=== PATIENT | male | born 1980 | race Caucasian/White ===

== ENCOUNTER 2018-05-11 15:07 | Emergency (ER) | payer OTHER, SELFPAY ==
[2018-05-11 15:16] VITALS: BP 113/81; PULSE 98; RESP 18; TEMP 36.2; O2SAT 98
--- NOTE | 2018-05-11 15:43 | W.ED.GENAD ---
Discharge Plan Disposition Patient Disposition: HOME Condition: Fair Discharge Details Chief Complaint: DentalOral Clinical Impression: Dental abscess Primary Care Provider: Carmine Esparza ED Provider: Luzma Smart Home Meds and New Rx's Prescriptions: New penicillin V potassium 500 mg tablet 500 mg PO QID Qty: 28 RF: 0 Continued tramadol 50 mg tablet 50 mg PO Q6H PRN Qty: 120 RF: 2 diclofenac potassium 50 mg tablet 50 mg PO HS Qty: 30 RF: 2 Combivent Respimat 20-100 mcg/actuation mist 1 puff Inhalation QID Qty: 2 RF: 5 topiramate 50 mg tablet 50 mg PO BID Qty: 180 RF: 4 acetaminophen [Acetaminophen Extra Strength] 500 MG tablet 2 tab PO Q6H PRNQty: 120 RF: 4 Discharge Instructions Instructions: Dental Abscess (ED) Additional Instructions: Encourage hydration. Tylenol and/or Motrin as needed for discomfort. Take antibiotics as prescribed, even if symptoms improve take the entire course. Call dentist tomorrow to schedule follow up appointment. If you develop new/worsening symptoms please seek care urgently once again. Discharge Data Discharge Date/Time-TO BE ENTERED AT DEPARTURE: 05/11/18 16:45 Medical Decision Making Patient is a 38 year old male with history of migraines and mental retardation with c/c of right lower dental pain. States that pain and swelling has been present for the past 3 days. Has noted that swelling has increased. Was initially having draining from the tooth. Does not receive regular dental care, his father is helping to schedule follow up appointment. On exam, he has swelling and area of fluctuance near a broken and decaying #27 tooth. Discussed pathology with dental abscess and risks/benefits of drainage. He voices understanding and wishes to proceed. No trismus, no swelling under tongue, no palpable lymphadenopathy, remaining exam of oral cavity significant for poor dentition. Procedure note: Area was first anesthetized with Hurricaine gel. The sufficiently anesthetized the area. Using 11 blade the abscess was incised. Bloody and purulent discharge was extracted. Patient tolerated this well Patient I discussed care of open area. I did encourage dental hygiene. He reports that he has never been brushing his teeth as he had dental work completed about 10 years ago at which time he placed sutures making him not want to brush his teeth. Advised he will need prompt follow-up with dentist. List of local dentist was given. He reports that his father will help establish an appointment. We discussed new/worsening symptoms when to seek care urgently once again. Patient was begun on penicillin. Advised that even if symptoms improve he take the entire course. All of his questions and concerns were addressed and he is in agreement this plan. HPI General Mode of arrival: ambulatory. Date/Time Provider Initiated Documentation: 05/11/18 15:38. Limitations to Documentation: no limitations. Information obtained by: patient. History of Present Illness 38 year old M presents to the emergency department with the chief complaint of dental pain and facial swelling, described as moderate, with intensity rated at 8. Quality is described as aching, and is localized to the face and mouth. Patient reports no radiation. Patient started experiencing this day(s) (3) and it has been constant. No relieving factors improve symptom(s), Eating worsens symptoms . Patient notes nausea/vomiting; denies cough, fever/chills, headaches, loss of appetite, rash and shortness of breath. Patient did receive the following treatments prior to arrival, none Related Data Home Medications Medication Instructions Recorded Confirmed acetaminophen [Acetaminophen Extra 2 tab PO Q6H PRN #120 tab-cap 12/15/17 05/11/18 Strength] diclofenac potassium 50 mg tablet 50 mg PO HS #30 tab 03/05/18 05/11/18 tramadol 50 mg tablet 50 mg PO Q6H PRN #120 tab-cap 03/05/18 05/11/18 ipratropium 20 mcg-albuterol 100 1 puff INHALATION QID #2 ea 05/07/18 05/11/18 mcg/actuation mist for inhalation topiramate 50 mg tablet 50 mg PO BID #180 tab-cap 18 05/11/18 penicillin V potassium 500 mg PO QID #28 tab 05/11/18 Previous Rx's Medication Instructions Recorded diclofenac potassium 50 mg tablet 50 mg PO HS #30 tab 03/05/18 tramadol 50 mg tablet 50 mg PO Q6H PRN #120 tab-cap 03/05/18 ipratropium 20 mcg-albuterol 100 1 puff INHALATION QID #2 ea 05/07/18 mcg/actuation mist for inhalation topiramate 50 mg tablet 50 mg PO BID #180 tab-cap 05/07/18 penicillin V potassium 500 mg PO QID #28 tab 05/11/18 Allergies Allergy/AdvReac Type Severity Reaction Status Date / Time latex Allergy Intermediate skin rash Unverified 05/11/18 15:19 General Stated Complaint: DentalOral TERRENCE: 4 Review of Systems Constitutional Reports as per HPI, Denies chills, Denies fatigue, Denies fever(s), Denies headache(s) and Denies poor appetite Eyes Denies change in vision and Denies irritation ENT Reports as per HPI, Reports dental pain, Denies dysphagia, Denies headache(s), Denies lip swelling, Denies nasal congestion, Denies nasal discharge, Denies odynophagia, Denies sore throat and Denies throat swelling Cardiovascular Reports as per HPI and Denies chest pain Respiratory Reports as per HPI and Denies cough Gastrointestinal Reports as per HPI, Denies dysphagia, Denies nausea, Denies odynophagia and Denies vomiting Integumentary/Breasts Reports as per HPI, Denies erythema, Denies rash and Denies skin pain Neurologic Denies headache(s) Endocrine Denies fatigue Allergic/Immunologic Denies lip swelling and Denies throat swelling PFSH Surgical History Arthroplasty of knee Social History household members: other details: 3 current occupational status: employed 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 pets and animals: Yes pets and animals: dog(s) frequency: 3-4 times per week duration: < 15 minutes/day Smoking/Tobacco Use Status: Former Tobacco Use passive smoking exposure: No alcohol intake: current alcohol intake frequency: a few times a month substance use type: does not use special aiden needs: No Exam Const General: cooperative, healthy appearing, comfortable, no acute distress, well developed and well groomed Nutritional Appearance: average body habitus and well nourished Orientation: alert and awake [facility] Head: normal to inspection, normocephalic and atraumatic Ears: hearing grossly normal bilaterally, external ears normal and TM's normal bilaterally General nose exam: external nose normal and nares normal Face and sinus: abnormal facial exam (patient has swelling to inferior right side of jaw over area of dental pain) and sinuses nontender Face images: 1. swelling Mouth: abnormal oral mucosae (patient has area of erythema and fluctuance along the inferior right aspect), lip normal, tongue normal, moist mucous membranes, no drooling, no muffled voice, no trismus and No restricted motion Teeth and gingiva: abnormal dentition (patient has poor dentition. Area of fluctuance at the #27 tooth), caries and poor dentition Throat: posterior oropharynx normal, tonsils normal and uvula midline Eyes General: appearance normal, both eyes and all related structures Neck Neck: normal visual inspection, full ROM, no lymphadenopathy, supple and no anterior neck swelling Resp Effort & Inspection: normal respiratory effort, able to speak in complete sentences and no respiratory distress Auscultation: clear to auscultation bilaterally, no rales, no rhonchi and no wheezes Cardio Rate: regular rate Rhythm: regular rhythm Heart Sounds: S1 normal and S2 normal Skin General skin exam: no rashes or lesions noted Trauma: no lacerations or abrasions Neuro General: alert and awake Cognition: normal cognition Speech: speech normal Gait: normal gait Psych Appearance: grossly normal and well kempt Mental Status: mental status grossly normal Speech and Movement: speech and movement normal Course Vital Signs Temperature 36.2 C L 05/11/18 15:16 Pulse 98 H 05/11/18 15:16 Respiratory Rate 18 05/11/18 15:16 Blood Pressure 113/81 05/11/18 15:16 Pulse Oximetry 98 05/11/18 15:16 Temperature 36.2 C L 05/11/18 15:16 Pulse 98 H 05/11/18 15:16 Respiratory Rate 18 05/11/18 15:16 Respiratory Effort 05/11/18 15:20 Blood Pressure 113/81 05/11/18 15:16 Blood Pressure Position Sitting 05/11/18 15:16 Pulse Oximetry 98 05/11/18 15:16 Oxygen Delivery Method Room Air 05/11/18 15:16 Oxygen Flow Rate 0 05/11/18 15:16 Pain Level 8 05/11/18 15:20
--- NOTE | 2018-05-11 15:50 | ED.GENADUL_ITS ---
Discharge Plan Disposition Patient Disposition: HOME Condition: Fair Discharge Details Chief Complaint: DentalOral Clinical Impression: Dental abscess Primary Care Provider: Carmine Esparza ED Provider: Luzma Smart Home Meds and New Rx's Prescriptions: New penicillin V potassium 500 mg tablet 500 mg PO QID Qty: 28 RF: 0 Continued tramadol 50 mg tablet 50 mg PO Q6H PRN Qty: 120 RF: 2 diclofenac potassium 50 mg tablet 50 mg PO HS Qty: 30 RF: 2 Combivent Respimat 20-100 mcg/actuation mist 1 puff Inhalation QID Qty: 2 RF: 5 topiramate 50 mg tablet 50 mg PO BID Qty: 180 RF: 4 acetaminophen [Acetaminophen Extra Strength] 500 MG tablet 2 tab PO Q6H PRNQty: 120 RF: 4 Discharge Instructions Instructions: Dental Abscess (ED) Additional Instructions: Encourage hydration. Tylenol and/or Motrin as needed for discomfort. Take antibiotics as prescribed, even if symptoms improve take the entire course. Call dentist tomorrow to schedule follow up appointment. If you develop new/worsening symptoms please seek care urgently once again. Discharge Data Discharge Date/Time-TO BE ENTERED AT DEPARTURE: 05/11/18 16:45 Medical Decision Making Patient is a 38 year old male with history of migraines and mental retardation with c/c of right lower dental pain. States that pain and swelling has been present for the past 3 days. Has noted that swelling has increased. Was initially having draining from the tooth. Does not receive regular dental care, his father is helping to schedule follow up appointment. On exam, he has swelling and area of fluctuance near a broken and decaying #27 tooth. Discussed pathology with dental abscess and risks/benefits of drainage. He voices understanding and wishes to proceed. No trismus, no swelling under tongue, no palpable lymphadenopathy, remaining exam of oral cavity significant for poor dentition. Procedure note: Area was first anesthetized with Hurricaine gel. The sufficiently anesthetized the area. Using 11 blade the abscess was incised. Bloody and purulent discharge was extracted. Patient tolerated this well Patient I discussed care of open area. I did encourage dental hygiene. He reports that he has never been brushing his teeth as he had dental work completed about 10 years ago at which time he placed sutures making him not want to brush his teeth. Advised he will need prompt follow-up with dentist. List of local dentist was given. He reports that his father will help establish an appointment. We discussed new/worsening symptoms when to seek care urgently once again. Patient was begun on penicillin. Advised that even if symptoms improve he take the entire course. All of his questions and concerns were addre ssed and he is in agreement this plan. HPI General Mode of arrival: ambulatory . Date/Time Provider Initiated Documentation: 05/11/18 15:38 . Limitations to Documentation: no limitations . Information obtained by: patient . History of Present Illness 38 year old M presents to the emergency department with the chief complaint of dental pain and facial swelling, described as moderate, with intensity rated at 8. Quality is described as aching, and is localized to the face and mouth. Patient reports no radiation. Patient started experiencing this day(s) (3) and it has been constant. No relieving factors improve symptom(s), Eating worsens symptoms . Patient notes nausea/vomiting; denies cough, fever/chills, headaches, loss of appetite, rash and shortness of breath. Patient did receive the following treatments prior to arrival, none Related Data Home Medications Medication Instructions Recorded Confirmed acetaminophen [Acetaminophen Extra 2 tab PO Q6H PRN #120 tab-cap 12/15/17 05/11/18 Strength] diclofenac potassium 50 mg tablet 50 mg PO HS #30 tab 03/05/18 05/11/18 tramadol 50 mg tablet 50 mg PO Q6H PRN #120 tab-cap 03/05/18 05/11/18 ipratropium 20 mcg-albuterol 100 1 puff INHALATION QID #2 ea 05/07/18 05/11/18 mcg/actuation mist for inhalation topiramate 50 mg tablet 50 mg PO BID #180 tab-cap 18 05/11/18 penicillin V potassium 500 mg PO QID #28 tab 05/11/18 Previous Rx's Medication Instructions Recorded diclofenac potassium 50 mg tablet 50 mg PO HS #30 tab 03/05/18 tramadol 50 mg tablet 50 mg PO Q6H PRN #120 tab-cap 03/05/18 ipratropium 20 mcg-albuterol 100 1 puff INHALATION QID #2 ea 05/07/18 mcg/actuation mist for inhalation topiramate 50 mg tablet 50 mg PO BID #180 tab-cap 05/07/18 penicillin V potassium 500 mg PO QID #28 tab 05/11/18 Allergies Allergy/AdvReac Type Severity Reaction Status Date / Time latex Allergy Intermediate skin rash Unverified 05/11/18 15:19 General Stated Complaint: DentalOral TERRENCE: 4 Review of Systems Constitutional Reports as per HPI, Denies chills, Denies fatigue, Denies fever(s), Denies headache(s) and Denies poor appetite Eyes Denies change in vision and Denies irritation ENT Reports as per HPI, Reports dental pain, Denies dysphagia, Denies headache(s), Denies lip swelling, Denies nasal congestion, Denies nasal discharge, Denies odynophagia, Denies sore throat and Denies throat swelling Cardiovascular Reports as per HPI and Denies chest pain Respiratory Reports as per HPI and Denies cough Gastrointestinal Reports as per HPI, Denies dysphagia, Denies nausea, Denies odynophagia and Denies vomiting Integumentary/Breasts Reports as per HPI, Denies erythema, Denies rash and Denies skin pain Neurologic Denies headache(s) Endocrine Denies fatigue Allergic/Immunologic Denies lip swelling and Denies throat swelling PFSH Surgical History Arthroplasty of knee Social History household members: other details: 3 current occupational status: employed 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 pets and animals: Yes pets and animals: dog(s) frequency: 3-4 times per week duration: < 15 minutes/day Smoking/Tobacco Use Status: Former Tobacco Use passive smoking exposure: No alcohol intake: current alcohol intake frequency: a few times a month substance use type: does not use special aiden needs: No Exam Const General: cooperative, healthy appearing, comfortable, no acute distress, well developed and well groomed Nutritional Appearance: average body habitus and well nourished Orientation: alert and awake [facility] Head: normal to inspection, normocephalic and atraumatic Ears: hearing grossly normal bilaterally, external ears normal and TM's normal bilaterally General nose exam: external nose normal and nares normal Face and sinus: abnormal facial exam (patient has swelling to inferior right zachery e of jaw over area of dental pain) and sinuses nontender Face images: 1. swelling Mouth: abnormal oral mucosae (patient has area of erythema and fluctuance along the inferior right aspect), lip normal, tongue normal, moist mucous membranes, no drooling, no muffled voice, no trismus and No restricted motion Teeth and gingiva: abnormal dentition (patient has poor dentition. Area of f luctuance at the #27 tooth), caries and poor dentition Throat: posterior oropharynx normal, tonsils normal and uvula midline Eyes General: appearance normal, both eyes and all related structures Neck Neck: normal visual inspection, full ROM, no lymphadenopathy, supple and no an terior neck swelling Resp Effort & Inspection: normal respiratory effort, able to speak in complete sentences and no respiratory distress Auscultation: clear to auscultation bilaterally, no rales, no rhonchi and no wheezes Cardio Rate: regular rate Rhythm: regular rhythm Heart Sounds: S1 normal and S2 normal Skin General skin exam: no rashes or lesions noted Trauma: no lacerations or abrasions Neuro General: alert and awake Cognition: normal cognition Speech: speech normal Gait: normal gait Psych Appearance: grossly normal and well kempt Mental Status: mental status grossly normal Speech and Movement: speech and movement normal Course Vital Signs Temperature 36.2 C L 05/11/18 15:16 Pulse 98 H 05/11/18 15:16 Respiratory Rate 18 05/11/18 15:16 Blood Pressure 113/81 05/11/18 15:16 Pulse Oximetry 98 05/11/18 15:16 Temperature 36.2 C L 05/11/18 15:16 Pulse 98 H 05/11/18 15:16 Respiratory Rate 18 05/11/18 15:16 Respiratory Effort 05/11/18 15:20 Blood Pressure 113/81 05/11/18 15:16 Blood Pressure Position Sitting 05/11/18 15:16 Pulse Oximetry 98 05/11/18 15:16 Oxygen Delivery Method Room Air 05/11/18 15:16 Oxygen Flow Rate 0 05/11/18 15:16 Pain Level 8 05/11/18 15:20
[2018-05-11 16:36] VITALS: BP 113/81; PULSE 98; RESP 18; TEMP 36.2; O2SAT 98
== END 2018-05-11 16:45 | disposition home or self-care (01) ==
PROVIDERS: Emergency Provider Physician Assistant; PCP Family Medicine
DX: K04.7 Periapical abscess without sinus (principal)
CPT/HCPCS: 99283

== ENCOUNTER 2018-05-14 10:21 | Outpatient (CLI) | payer OTHER, SELFPAY ==
[2018-05-14 11:43] LABS: BUN 14 mg/dL (7-18); CREATININE 1.02 mg/dL (0.70-1.30); Chloride 103 mmol/L (98-107); Cholesterol 177 mg/dL (50-200); Glucose 105 mg/dL (70-100); HDL Cholesterol 47 mg/dL (40-60); LDL CHOLESTEROL 114 mg/dL (<100); Sodium 140 mmol/L (136-145); Triglyceride 66 mg/dL (30-150)
== END 2018-05-14 10:41 ==
PROVIDERS: PCP Family Medicine; Visit Provider Family Medicine
DX: Z00.00 Encounter for general adult medical examination without abnormal findings (principal); I10 Essential (primary) hypertension
CPT/HCPCS: 36415; 80048; 80061; 83721

== ENCOUNTER 2018-10-15 13:44 | Outpatient (CLI) | payer OTHER, SELFPAY ==
[2018-10-15 14:06] LABS: HCT 38.4 % (40.0-50.0); HGB 13.6 g/dL (13.5-17.5); Mean Corp. HGB Concentration 35.4 g/dL (32.0-36.0); Mean Corpuscular Volume 93.2 fL (80-95); Mean Platelet Volume 10.6 fL (8.0-11.0); Platelet Count 202 x1000/uL (130-400); RBC 4.12 m/cumm (4.50-6.00); RBC Distribution Width 12.4 % (11.8-14.1); White Blood Cell Count 5.44 k/cumm (4.4-10.8)
[2018-10-15 14:16] LABS: PTT Activated 20.5 sec (21.0-31.4); Prothrombin Time 9.9 sec (9.3-11.0)
== END 2018-10-15 14:04 ==
PROVIDERS: PCP Family Medicine; Visit Provider Family Medicine
DX: R04.0 Epistaxis (principal)
CPT/HCPCS: 36415; 85027; 85610; 85730

== ENCOUNTER 2019-01-31 13:29 | Emergency (ER) | payer OTHER, SELFPAY ==
[2019-01-31 13:32] VITALS: BP 126/88; PULSE 93; RESP 16; TEMP 36.8; O2SAT 98
--- NOTE | 2019-01-31 15:24 | ED.GENADUL_ITS ---
Discharge Plan Disposition Patient Disposition: HOME Condition: Stable Discharge Details Chief Complaint: Cellulitis Clinical Impression: Infection of toe Primary Care Provider: Carmine Esparza ED Provider: Eliceo Carlton Home Meds and New Rx's Prescriptions: New amoxicillin-pot clavulanate [Augmentin] 875-125 mg tablet 1 tab PO BID Qty: 14 RF: 0 Continued diclofenac potassium 50 mg tablet 50 mg PO HS Qty: 30 RF: 2 Combivent Respimat 20-100 mcg/actuation mist 1 puff Inhalation QID Qty: 2 RF: 5 acetaminophen [Acetaminophen Extra Strength] 500 MG tablet 2 tab PO Q6H PRNQty: 120 RF: 4 tramadol 50 mg tablet 50 mg PO Q6H PRN Qty: 120 RF: 2 No Action topiramate 50 mg tablet 50 mg PO BID Qty: 180 RF: 4 Discharge Instructions Instructions: Cellulitis (ED) Additional Instructions: Please take your medication as prescribed including her antibiotic. Return immediately for any new or significant worsening of symptoms. Otherwise over th e next 3 days please soak your foot in warm soapy water 3 times a day and keep your foot as dry as possible while at work and otherwise. If not improving please follow-up with your primary care provider for reassessment Referrals: Carmine Esparza MD [Primary Care Provider] - (As needed for reassessment or if not improving) Discharge Data Discharge Date/Time-TO BE ENTERED AT DEPARTURE: 01/31/19 15:31 Medical Decision Making Patient presenting the emergency department chief complaint of infection of the right fifth toe. Patient states that he noticed this last night. Patient does state a couple days ago he cut his toe. Patient denies any pain or discomfort at this point he does state though that he only gets his foot wet quite often while at work wears work boots. Physical exam shows swollen left fifth toe on the distal aspect with some dried blood noted underneath the nail. It is difficult to fully assess the skin though because of what appears to be either shoe dye or Betadine that has discolored the skin. Attempted to remove this with chlorhexidine scrub was able to remove some of it but not all of it. It does look like the distal aspect of the toe is slightly darkened in the area of swelling but again difficult to observe erythema. Given the patient does state injury to this area and that his feet get wet quite often at work and concern for infection I do feel it is prudent to place patient on antibiotic. Patient was placed upon Augmentin twice daily for 1 week and otherwise informed to do foot soaks to further help with his symptoms. Return precautions discussed. After discussion of diagnosis and plan of care patient has no further needs, questions, or concerns and states clear understanding to return to the emergency department for any worsening symptoms. HPI General Mode of arrival: ambulatory . Date/Time Provider Initiated Documentation: 01/31/19 13:38 . Limitations to Documentation: no limitations . Information obtained by: patient and RN notes reviewed . History of Present Illness 38 year old M presents to the emergency department with the chief complaint of Right foot infection, described as moderate, with intensity rated at 1. Quality is described as aching, and is localized to the right and lower extremity. Patient started experiencing this day(s) (2) and it has been constant. Patient notes no other symptoms.. Patient did receive the following treatments prior to arrival, other (Alcohol and soap scrubs) Related Data Home Medications Medication Instructions Recorded Confirmed acetaminophen [Acetaminophen Extra 2 tab PO Q6H PRN #120 tab-cap 12/15/17 01/31/19 Strength] diclofenac potassium 50 mg tablet 50 mg PO HS #30 tab 03/05/18 01/31/19 ipratropium 20 mcg-albuterol 100 1 puff INHALATION QID #2 ea 05/07/18 01/31/19 mcg/actuation mist for inhalation tramadol 50 mg tablet 50 mg PO Q6H PRN #120 tab-cap 11/02/18 01/31/19 amoxicillin-pot clavulanate 1 tab PO BID #14 tab 01/31/19 [Augmentin] topiramate 50 mg tablet 50 mg PO BID #180 tab-cap 01/31/19 Previous Rx's Medication Instructions Recorded diclofenac potassium 50 mg tablet 50 mg PO HS #30 tab 03/05/18 ipratropium 20 mcg-albuterol 100 1 puff INHALATION QID #2 ea 05/07/18 mcg/actuation mist for inhalation tramadol 50 mg tablet 50 mg PO Q6H PRN #120 tab-cap 11/02/18 amoxicillin-pot clavulanate 1 tab PO BID #14 tab 01/31/19 [Augmentin] topiramate 50 mg tablet 50 mg PO BID #180 tab-cap 01/31/19 Allergies Allergy/AdvReac Type Severity Reaction Status Date / Time latex Allergy Intermediate skin rash Unverified 10/15/18 12:55 General Stated Complaint: Cellulitis TERRENCE: 4 Review of Systems Constitutional Denies body ache(s), Denies chills and Denies fever(s) Integumentary/Breasts Reports as per HPI, Reports erythema and Reports skin swelling Neurologic Denies sensory deficit PFSH Surgical History Arthroplasty of knee Dr. 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 Pets and animals: Yes Pets and animals: dog(s) Duration: < 15 minutes/day Frequency: 3-4 times per week Special aiden needs: No Do you feel safe in your relationship?: Yes Exam Const General: cooperative, no acute distress and not ill appearing Orientation: alert, awake and oriented x3 HENMT Mouth: moist mucous membranes Resp Effort & Inspection: normal respiratory effort, able to speak in complete sentences and no respiratory distress Cardio Rate: regular rate Rhythm: regular rhythm Extrem General: normal exam except as noted Left lower extremity: foot Details: normal capillary refill, tenderness Location: of another digit Location: the 5th digit and along the entire digit, toes with normal ROM, vascular exam Details: dorsalis pedis pulse present and motor-sensory exam Details: two point discrimination normal and light-touch normal Course Vital Signs Temperature 36.8 C 01/31/19 13:32 Pulse 93 H 01/31/19 13:32 Respiratory Rate 16 01/31/19 13:32 Blood Pressure 126/88 01/31/19 13:32 Pulse Oximetry 98 01/31/19 13:32 Temperature 36.8 C 01/31/19 13:32 Temperature Source Skin 01/31/19 13:32 Pulse 93 H 01/31/19 13:32 Respiratory Rate 16 01/31/19 13:32 Blood Pressure 126/88 01/31/19 13:32 Blood Pressure Position Sitting 01/31/19 13:32 Pulse Oximetry 98 01/31/19 13:32 Oxygen Delivery Method Room Air 01/31/19 13:32 Oxygen Flow Rate 0 01/31/19 13:32 Pain Level 0 01/31/19 13:32
== END 2019-01-31 15:31 | disposition home or self-care (01) ==
PROVIDERS: Emergency Provider Nurse Practitioner Family; PCP Family Medicine
DX: L03.031 Cellulitis of right toe (principal)
CPT/HCPCS: 99283

== ENCOUNTER 2019-02-10 21:12 | Emergency (ER) | payer OTHER, SELFPAY ==
[2019-02-10 21:16] VITALS: BP 127/86; PULSE 90; RESP 18; TEMP 36.7; O2SAT 96
--- NOTE | 2019-02-10 21:21 | W.ED.GENAD ---
Discharge Plan Disposition Patient Disposition: HOME Condition: Good Discharge Details Chief Complaint: DentalOral Clinical Impression: Dental infection Primary Care Provider: Carmine Esparza ED Provider: Rogerio Stewart Home Meds and New Rx's Prescriptions: New penicillin V potassium 500 mg tablet 500 mg PO TID Qty: 20 RF: 0 Continued diclofenac potassium 50 mg tablet 50 mg PO HS Qty: 30 RF: 2 Combivent Respimat 20-100 mcg/actuation mist 1 puff Inhalation QID Qty: 2 RF: 5 acetaminophen [Acetaminophen Extra Strength] 500 MG tablet 2 tab PO Q6H PRNQty: 120 RF: 4 tramadol 50 mg tablet 50 mg PO Q6H PRN Qty: 120 RF: 2 topiramate 50 mg tablet 50 mg PO BID Qty: 180 RF: 4 Discharge Instructions Instructions: Penicillin V (By mouth), Dental Abscess (ED) Additional Instructions: You may take Tylenol for your dental pain. Start antibiotic for infection. He will need follow-up with dentistry. [facility] now as a dentist who will take people to the OR. Return to ED for inability to swallow, difficulty breathing, increasing face pain or swelling. Referrals: [facility] [Provider Group] Medical Decision Making Patient with severe dental decay involving all teeth. Percussion tenderness over tooth #30. No obvious abscess that is drainable here. Patient will be started on penicillin. May use Tylenol or Motrin for pain. Referred to dentistry for further evaluation and management. Return to ED for difficulty breathing, inability to swallow, increased facial pain or swelling, high fever. HPI General Mode of arrival: ambulatory. Date/Time Provider Initiated Documentation: 02/10/19 21:20. Limitations to Documentation: no limitations. Information obtained by: patient and RN notes reviewed. HPI Narrative: Patient presents to ED with right lower dental pain for about 1 week. He has very bad dentition. He has not seen a dentist in a while. Pain has been getting worse over the course of a week. He has had no fever that he is aware of. He has no difficulty breathing or swallowing. Related Data Home Medications Medication Instructions Recorded Confirmed acetaminophen [Acetaminophen Extra 2 tab PO Q6H PRN #120 tab-cap 12/15/17 02/10/19 Strength] diclofenac potassium 50 mg tablet 50 mg PO HS #30 tab 03/05/18 02/10/19 ipratropium 20 mcg-albuterol 100 1 puff INHALATION QID #2 ea 05/07/18 02/10/19 mcg/actuation mist for inhalation tramadol 50 mg tablet 50 mg PO Q6H PRN #120 tab-cap 11/02/18 02/10/19 topiramate 50 mg tablet 50 mg PO BID #180 tab-cap 01/31/19 02/10/19 penicillin V potassium 500 mg PO TID #20 tab 02/10/19 Previous Rx's Medication Instructions Recorded diclofenac potassium 50 mg tablet 50 mg PO HS #30 tab 03/05/18 ipratropium 20 mcg-albuterol 100 1 puff INHALATION QID #2 ea 05/07/18 mcg/actuation mist for inhalation tramadol 50 mg tablet 50 mg PO Q6H PRN #120 tab-cap 11/02/18 topiramate 50 mg tablet 50 mg PO BID #180 tab-cap 01/31/19 penicillin V potassium 500 mg PO TID #20 tab 02/10/19 Allergies Allergy/AdvReac Type Severity Reaction Status Date / Time latex Allergy Intermediate skin rash Unverified 02/10/19 21:19 General Stated Complaint: DentalOral TERRENCE: 5 Review of Systems Constitutional Constitutional: Denies fever(s) ENT Ears, Nose, Mouth, and Throat: Reports dental pain and Denies facial pain COUNT INCLUDES THE [facility] Medical History Migraine (Chronic) Surgical History Arthroplasty of knee Dr. 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 Pets and animals: Yes Pets and animals: dog(s) Duration: < 15 minutes/day Frequency: 3-4 times per week Special aiden needs: No Do you feel safe at home: Yes Do you feel safe in your relationship?: Yes Exam Const General: cooperative and comfortable Orientation: alert and oriented x3 HENMT Head: normocephalic and atraumatic Face and sinus: normal facial exam Teeth and gingiva: gingiva normal, poor dentition and other (tooth 30 with percussion tenderness) Course Vital Signs Vital signs: Vital Signs Temperature 98.1 F 02/10/19 21:16 Pulse 90 02/10/19 21:16 Respiratory Rate 18 02/10/19 21:16 Blood Pressure 127/86 02/10/19 21:16 Pulse Oximetry 96 02/10/19 21:16 Temperature 98.1 F 02/10/19 21:16 Temperature Source Skin 02/10/19 21:16 Pulse 90 02/10/19 21:16 Respiratory Rate 18 02/10/19 21:16 Respiratory Effort 02/10/19 21:19 Blood Pressure 127/86 02/10/19 21:16 Blood Pressure Position Sitting 02/10/19 21:16 Pulse Oximetry 96 02/10/19 21:16 Oxygen Delivery Method Room Air 02/10/19 21:16 Oxygen Flow Rate 0 02/10/19 21:16 Pain Level 8 02/10/19 21:19
[2019-02-10] MEDS: Penicillin V POTASSIUM 500 MG TAB PO (21:36)
[2019-02-10] MEDS: Acetaminophen 500 MG TAB 1000 MG PO (21:36)
== END 2019-02-10 21:55 | disposition home or self-care (01) ==
PROVIDERS: Emergency Provider Emergency Medicine; PCP Family Medicine
DX: K04.7 Periapical abscess without sinus (principal)
CPT/HCPCS: 99282

== ENCOUNTER 2019-08-26 10:53 | Emergency (ER) | payer OTHER, SELFPAY ==
--- NOTE | 2019-08-26 11:02 | ED.GENADUL_ITS ---
Discharge Plan Disposition Patient Disposition: HOME Condition: Stable Discharge Details Chief Complaint: GenMedical Clinical Impression: Well adult exam Primary Care Provider: Carmine Esparza ED Provider: Vandana Rachel Home Meds and New Rx's Prescriptions: Continued acetaminophen [Acetaminophen Extra Strength] 500 MG tablet 2 tab PO Q6H PRNQty: 120 RF: 4 topiramate 50 mg tablet 50 mg PO BID Qty: 180 RF: 4 Combivent Respimat 20-100 mcg/actuation mist 1 puff Inhalation QID Qty: 2 RF: 5 tramadol 50 mg tablet 50 mg PO Q6H PRN Qty: 120 RF: 2 Discharge Instructions Instructions: How to Take a Temperature (ED), Return to Work Instructions (ED) Additional Instructions: Drink plenty of fluids and get plenty of rest. If you develop any symptoms of fever, cough, shortness of breath, you can follow-up with your primary care doctor or return to the emergency department for evaluation. Stand Alone Forms: Work Release Discharge Data Discharge Physician: Vandana Rachel Medical Decision Making 39-year-old male here for evaluation after noted to have a temp of 100 at work this morning. Mom recommended he come here for evaluation as he was sent home from work cannot return today. Vitals within normal limits. Afebrile here with normal oxygen saturation. Patient appears nontoxic. He has no acute complaints. Normal ENT exam. Lungs clear. Patient requested a work note to return Thursday. He was advised to follow-up with his primary care doctor return here if he develops any symptoms of fever, cough, shortness of breath. Medical Records Medical records reviewed: Yes I reviewed the patient's medical records. HPI General Mode of arrival: ambulatory . Date/Time Provider Initiated Documentation: 08/26/19 10:54 . Limitations to Documentation: no limitations . Information obtained by: patient . HPI Narrative: Patient is a 39-year-old male who presents for evaluation after found to have a temperature of 100 at work at [employer] this morning. Patient states he was sent home from work due to this temperature. He states his mom advised him to come here for further evaluation as he states he did not have a temperature at home this morning and felt fine. He states his temperature this morning at home was 93.5. He states he was advised by his work to not return to work today. Patient denies any symptoms of fever, chills, body aches, cough, chest pain, chills, shortness of breath or new sore throat. He states he has a history of chronic sore throat for several years but states this is no worse than usual. Related Data Home Medications Medication Instructions Recorded Confirmed acetaminophen [Acetaminophen Extra 2 tab PO Q6H PRN #120 tab-cap 12/15/17 08/26/19 Strength] topiramate 50 mg tablet 50 mg PO BID #180 tab-cap 01/31/19 08/26/19 ipratropium 20 mcg-albuterol 100 1 puff INHALATION QID #2 ea 06/16/19 08/26/19 mcg/actuation mist for inhalation tramadol 50 mg tablet 50 mg PO Q6H PRN #120 tab-cap 08/05/19 08/26/19 Previous Rx's Medication Instructions Recorded topiramate 50 mg tablet 50 mg PO BID #180 tab-cap 01/31/19 ipratropium 20 mcg-albuterol 100 1 puff INHALATION QID #2 ea 06/16/19 mcg/actuation mist for inhalation tramadol 50 mg tablet 50 mg PO Q6H PRN #120 tab-cap 08/05/19 Allergies Allergy/AdvReac Type Severity Reaction Status Date / Time latex Allergy Intermediate skin rash Unverified 08/26/19 11:08 General TERRENCE: 5 Review of Systems All systems reviewed & are unremarkable except as noted in HPI and below Constitutional Constitutional: Reports as per HPI, Denies chills and Denies fever(s) Eyes Eyes: Denies blurry vision ENT Ears, Nose, Mouth, and Throat: Denies dizziness, Denies sore throat and Denies throat swelling Cardiovascular Cardiovascular: Denies chest pain and Denies dyspnea Respiratory Respiratory: Denies cough and Denies dyspnea Gastrointestinal Gastrointestinal: Denies abdominal pain, Denies diarrhea and Denies vomiting Genitourinary Genitourinary: Denies hematuria and Denies dysuria Musculoskeletal Musculoskeletal: Denies back pain and Denies numbness Integumentary/Breasts Skin/Breast: Denies lesions and Denies rash Neurologic Neurologic: Denies dizziness, Denies localized weakness and Denies numbness Allergic/Immunologic Allergic/Immunologic: Denies throat swelling [facility] Social History Smoking/Tobacco Use Status: Former Tobacco Use Alcohol Intake: current Alcohol Intake frequency: a few times a month Drug use: Never Substance use type: does not use Household members: other Details: 3 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 Pets and animals: Yes Pets and animals: dog(s) Duration: < 15 minutes/day Frequency: 3-4 times per week Special aiden needs: No Do you feel safe at home: Yes Do you feel safe in your relationship?: Yes Exam Const General: cooperative and healthy appearing Orientation: alert and awake HENMT Head: normal to inspection Ears: hearing grossly normal bilaterally, external ears normal and TM's normal b ilaterally General nose exam: external nose normal Face and sinus: normal facial exam Mouth: oral mucosae normal Teeth and gingiva: dentition normal Throat: posterior oropharynx normal Eyes General: appearance normal, both eyes and all related structures Eyelids: eyelids normal EOM: EOM intact bilaterally Neck Neck: normal visual inspection Lymphatic: no lymphadenopathy noted Resp Effort & Inspection: normal respiratory effort and able to speak in complete sentences Auscultation: clear to auscultation bilaterally Cardio Rate: regular rate Rhythm: regular rhythm Skin General skin exam: no rashes or lesions noted Neuro General: patient alert and patient awake Cognition: abnormal cognition (appears to mild developmental delay) Speech: speech normal Gait: normal gait Motor: muscle tone normal throughout Sensory Exam: no sensory deficits noted Extrem General: normal to inspection, full ROM and capillary refill normal Psych Appearance: grossly normal Mental Status: mental status grossly normal Speech and Movement: speech and movement normal Affect: normal affect Thought Process: normal
[2019-08-26 11:04] VITALS: BP 123/79; PULSE 99; RESP 18; TEMP 36.5; O2SAT 97
[2019-08-26 11:06] VITALS: RESP 16
[2019-08-26 11:33] VITALS: BP 123/79; PULSE 99; RESP 16; TEMP 36.5; O2SAT 97
== END 2019-08-26 11:32 | disposition home or self-care (01) ==
PROVIDERS: Emergency Provider Physician Assistant; PCP Family Medicine
DX: Z04.89 Encounter for examination and observation for other specified reasons (principal)
CPT/HCPCS: 99281

== ENCOUNTER 2020-09-03 09:02 | Outpatient (CLI) | payer OTHER, SELFPAY ==
[2020-09-04 14:15] LABS: COVID-19 RT-PCR UVMMC Result Negative (Negative)
== END 2020-09-03 09:03 | disposition home or self-care (01) ==
PROVIDERS: PCP Family Medicine; Visit Provider Family Medicine
DX: Z20.822 Contact with and (suspected) exposure to COVID-19 (principal)
CPT/HCPCS: U0003

== ENCOUNTER 2020-10-08 03:25 | Outpatient (CLI) | payer OTHER, SELFPAY ==
[2020-10-08 07:35] LABS: HCT 43.7 % (40.0-50.0); MCH 32.4 pg (27.0-33.0); MCHC 34.3 % (32.0-36.0); MCV 94.4 fL (80-95); MPV 10.3 fL (8.0-11.0); Platelet Count 201 10^3/uL (130-400); RBC 4.63 10^6/uL (4.36-5.78); RDW 11.9 % (11.8-14.1); RDW-SD 41.3 fL; WBC 7.71 10^3/uL (4.4-10.8)
[2020-10-08 08:19] LABS: ALT 23 U/L (16-63); AST 24 U/L (15-37); Albumin 4.1 g/dL (3.4-5.0); Alkaline Phosphatase 88 U/L (46-116); Anion Gap 7.6 mmol/L (3-11); BUN 12 mg/dL (7-18); Bilirubin, Total 0.5 mg/dL (0.2-1.0); CO2 30.4 mmol/L (21.0-32.0); CREATININE 0.9 mg/dL (0.70-1.30); Calcium 9.1 mg/dL (8.5-10.1); Calculated LDL 141 mg/dL (<100); Chloride 105 mmol/L (98-107); Cholesterol 212 mg/dL (<200); Glucose 115 mg/dL (74-106); HDL Cholesterol 57 mg/dL (40-60); Potassium 4.8 mmol/L (3.5-5.1); Sodium 143 mmol/L (136-145); Total Protein 7.8 g/dL (6.4-8.2); Triglyceride 74 mg/dL (<150)
[2020-10-08 10:29] LABS: Hemoglobin A1C 5.3 % (<5.7)
== END 2020-10-08 03:26 | disposition home or self-care (01) ==
LOC: LBO 03:25
PROVIDERS: PCP Family Medicine; Visit Provider Nurse Practitioner Family
DX: Z00.00 Encounter for general adult medical examination without abnormal findings (principal); R73.09 Other abnormal glucose; Z13.220 Encounter for screening for lipoid disorders
CPT/HCPCS: 36415; 80053; 80061; 85027; 83036

== ENCOUNTER 2020-11-20 11:35 | Outpatient (REF) | payer OTHER, SELFPAY ==
[2020-11-22 13:50] LABS: COVID-19 RT-PCR UVMMC Result Negative (Negative)
== END 2020-11-20 11:36 | disposition home or self-care (01) ==
LOC: LBN 11:35
PROVIDERS: PCP Nurse Practitioner Family; Visit Provider Physician Assistant
DX: J02.9 Acute pharyngitis, unspecified (principal); Z20.822 Contact with and (suspected) exposure to COVID-19
CPT/HCPCS: U0003; 87070

== ENCOUNTER 2021-06-17 02:10 | Outpatient (CLI) | payer BC, SELFPAY ==
--- NOTE | 2021-06-17 08:15 | DI.US_ITS ---
APPROVED REPORT EXAM: Comprehensive 2D, Doppler, and color-flow Echocardiogram Patient Location: Out-Patient Locator Specialist: Massiel Enciso RDCS (AE) Indications: Chest Pain, SOB Other Information Study Quality: Good Conclusion Normal left ventricular wall thickness and chamber size. Estimated ejection fraction is 60%. There are no segmental wall motion abnormalities Normal right ventricular size and systolic function Both atria are normal in size There is no structural or hemodynamically significant valvular disease Wall motion Left Ventricle The left ventricle is normal size. The left ventricular systolic function is normal. The left ventric ular ejection fraction is within the normal range. There is normal left ventricular wall thickness. T here is normal LV segmental wall motion. There is no ventricular septal defect visualized. LVEF is 60 %. Right Ventricle The right ventricle is normal size. The right ventricular systolic function is normal. The RVSP is 32 .3 mmHg. Atria The left atrium size is normal. The right atrium size is normal. The interatrial septum is intact wit h no evidence for an atrial septal defect. Aortic Valve The aortic valve is normal in structure. Aortic valve is trileaflet. There is no aortic valvular sten osis. No aortic regurgitation is present. Mitral Valve The mitral valve is normal in structure. No evidence of mitral valve stenosis. Trace mitral regurgita tion. Tricuspid Valve The tricuspid valve is normal in structure. There is no tricuspid valve stenosis. Trace tricuspid reg urgitation. Pulmonic Valve The pulmonary valve is normal in structure. There is no pulmonic valvular stenosis. There is no pulmo hernán valvular regurgitation. Great Vessels The aortic root is normal in size. The ascending aorta is normal in size. Aortic arch is normal in ca liber. IVC is normal in size and collapses >50% with inspiration. Pericardium There is no pericardial effusion. 2D Dimensions IVSD d PLAX 0.80 cm M: 0.6-1.2 LV Vol A2C d MOD 106.3 mL LVPW d PLAX 0.82 cm M: 0.6 - 1.2 LV Vol A4C d MOD 102.5 mL LVID d PLAX 4.71 cm M: 4.2 - 5.8 LA vol/ BSA A2C s A-L 24.7 mL/m2 LVDs 3.05 cm M: 2.5 - 4.0 LA vol/ BSA A4C s A-L 29.2 mL/m2 Ao Root d 3.34 cm M: 3.1 - 3.7 LA Vol/ BSA Biplane s A-L 27.8 mL/m2 RA Area A4C 11.96 cm2 LA Area A4C s MOD 18.42 cm2 RA Vol/ BSA A4C s A-L 15.7 mL/m2 LA Area A2C s MOD 16.34 cm2 Ao Asc Diam d 3.31 cm M: 2.6 - 3.4 LV EF A4C MOD 60.7 % LV EF Teichholz 63.7 % LV EF A2C MOD 61.3 % LVEF (John's) 60.61 % M: 52 - 72 LV EF Biplane MOD 60.6 % LV Volume 80.41 mL M: 62 - 150 SV 63.37 mL LV Volume Index 43.46 mL/m2 M: 34 - 74 SV Index 34.10 mL/m2 LV Vol Biplane MOD 104.5 mL FS 34.55 % M-Mode TAPSE 2.69 cm (M/F) >1.7 LV Diastology MV E' medial 0.121 (>0.07 m/s) E/A Ratio 1.3 LV E/e MED 6.20 (<14) MV E Vmax 0.75 (0.4-1.3 m/s) MV E' lateral 0.171 (>0.1 m/s) MV A Vmax 0.60 (0.4-1.3 m/s) LV E/e LAT 4.35 (<14) MV E/A Ratio 1.25 MV E/E' medial 6.20 MV E/E' lateral 4.39 Aortic Valve LVOT Area 3.09 cm2 AoV Area Vmax 3.05 cm2 LVOT Vmax 1.26 m/s AoV Area/ BSA (Vmax) 1.64 cm2/m2 LVOT Mean Asl. 0.84 m/s JUAN Mean Sal. 2.93 cm2 LVOT Peak Grad 6.3 mmHg JUAN Mean Sal. Index 1.58 cm2/m2 LVOT Mean Grad 3.3 mmHg LVOT VTI 0.238 m LVOT Diam s 1.95 cm AoV Vmax 1.28 m/s Velocity Ratio 0.98 AoV Mean Sal. 0.89 m/s AoV Peak Grad 6.5 mmHg LVOT SV 73.57 mL AoV Mean Grad 3.6 mmHg AoV VTI 0.227 m AoV Area VTI 3.24 cm2 AoV Area/ BSA (VTI) 1.74 cm/m2 Mitral Valve MV DT 293 (160-240 msec) MV PHT 85 msec MV Area PHT 2.59 cm2 MV VTI 0.264 m MV Area VTI 2.79 (4.0-6.0 cm2) Pulmonary Valve PV Vmax 1.15 (0.5-1.5 m/s) RVOT Peak Gr. 3.72 mmHg PV Peak Grad 5.3 mmHg RVOT Mean Gr. 1.80 mmHg PV Mean Grad 2.8 mmHg RVOT VTI 0.196 m PV VTI 0.219 m RVOT Vmax 0.96 m/s Tricuspid Valve TR Peak Grad 29.2 mmHg TR Vmax 2.71 m/s RA Pressure 3.00 mmHg RVSP (TR) 32.3 mmHg
== END 2021-06-17 02:30 ==
PROVIDERS: PCP Nurse Practitioner Family; Visit Provider Surgery
DX: R07.9 Chest pain, unspecified (principal); R06.02 Shortness of breath; R07.0 Pain in throat; R13.10 Dysphagia, unspecified; G89.29 Other chronic pain; R73.09 Other abnormal glucose; F79 Unspecified intellectual disabilities
CPT/HCPCS: 93306

== ENCOUNTER 2021-06-19 01:15 | Outpatient (CLI) | payer BC, SELFPAY ==
[2021-06-19 15:34] LABS: Source Nasal/Nares
[2021-06-19 18:27] LABS: COVID-19 PCR Negative (Negative)
== END 2021-06-19 01:16 | disposition home or self-care (01) ==
LOC: LBO 01:15
PROVIDERS: PCP Nurse Practitioner Family; Visit Provider Surgery
DX: Z20.822 Contact with and (suspected) exposure to COVID-19 (principal); Z01.818 Encounter for other preprocedural examination
CPT/HCPCS: 87635

== ENCOUNTER 2021-06-21 06:53 | Day surgery (SDC) | payer BC, SELFPAY ==
--- NOTE | 2021-06-20 15:50 | W.PM.ENDDOP ---
Date of service: 06/21/21 Endoscopy Report DATE OF PROCEDURE: 06/21/21 PRE-OP DIAGNOSIS: gerd/esophagitis POST-OP DIAGNOSIS: same SURGEON: Laney White ANESTHESIA TYPE: General:No Airway ESTIMATED BLOOD LOSS: 2 PATHOLOGY: other COMPLICATIONS: None DISPOSITION: same day PROCEDURE DESCRIPTION: After informed consent was obtained the patient was take to the procedure room and placed in a supine position. Monitors were applied and a time out was done. The patients name, date of , procedure type, allergies to medications and metal in their body was reviewed. A bite block was placed and the patient was sedated. Once sedated and comfortable the gastroscope was advanced through the oropharynx which was grossly normal into the esophagus. The proximal and mid-esophagus were nl. In the distal esophagus there was no esophageal erosions, varices, diverticula, or stricture apparent. The scope was advanced into the stomach and through the pylorus into the 3rd portion of the duodenum. The duodenum was noted to be . nl Biopsies were done. The scope was retracted back into the stomach and biopsies were done to rule out H. pylori. There were no gastritis or ulcers. The scope was retroflexed. The cardia and fundus were noted to be normal. There no a hiatal hernia noted. The scope was retracted back into the esophagus and biopsies were done of the GE junction to rule out Gruber's. The Z line was regular. The scope was removed and the patient was woken up and taken back to [facility] in stable condition. Follow up: Continue on Prilosec. Continue lifestyle modifications. Follow-up in 2 to 3 weeks
--- NOTE | 2021-06-20 15:50 | W.PM.DSUDISC ---
Discharge Plan Disposition Patient Disposition: HOME Condition: Good Discharge Details Reason For Visit: stomach scope Attending Provider: Laney White Primary Care Provider: Francis Ring Home Meds and New Rx's Prescriptions: No Action acetaminophen [Acetaminophen Extra Strength] 500 mg tablet 500 mg PO Q6H PRN (Reason: pain) Qty: 120 RF: 4 omeprazole 20 mg capsule,delayed release(DR/EC) 20 mg PO DAILY Qty: 30 RF: 1 topiramate 50 mg tablet 50 mg PO BID Qty: 180 RF: 4 Combivent Respimat 20-100 mcg/actuation mist 1 puff Inhalation QID Qty: 2 RF: 5 tramadol 50 mg tablet 50 mg PO Q6H PRN Qty: 120 RF: 3 Discharge Instructions Additional Instructions: Post EGD Instruction You have just had a gastroscopy (EGD) or upper GI tract examination. It is important for your smooth recovery that you carefully follow the recommendations below. Do not hesitate to call if any questions should arise about your anesthesia, condition, or care. Call your physician, Dr. Laney White, DO at [phone], (Our office is open 8:00am-4:30pm M-F. After hours you should call the hospital or go to the emergency room) if any of the following problems occur: 1. Vomiting blood and /or ?coffee ground? material. 2. Worsening of abdominal pain or cramping. 3. Trouble with breathing, cough, and/or fever (temperature above 101.5 F). 4. Increasing pain with swallowing. 5. Chest pain. 6. Any new symptoms. 7. Worsening of the redness at the IV site Symptoms you may experience during the next 24 hours: 1. Mild abdominal pain or excessive gas or a bloated feeling which improves with rest, liquids, eating slightly, and walking as tolerated. 2. Drowsiness and/or forgetfulness because of the medications you were given. 3. Throat numbness for about 1 hour. 4. A sore throat which you can treat with throat lozenges or by gargling with salt water 4-5 times a day. 5. Redness at the site of your IV which you can treat with warm compresses. SPECIAL INSTRUCTIONS: 1. You may resume your previous diet in one hour. We recommend a light meal to start, then progress as tolerated. 2. No alcohol, driving, operating heavy machinery, or making ?legally-binding? decisions until you have had a good night?s sleep. 3. Restart regular medications in one hour. 6. It is important to relax for the rest of the day. You may return to normal activities the day after your procedure. Follow up: -My office will send a letter with the results of your biopsy?s in 2-3wks time. -Continue to follow lifestyle modifications: Continue with lifestyle modifications: no alcohol, tobacco products, Aspirin or NSAID's (ibuprofen, Motrin, Naprosyn, aleve, etc), soda pop/any carbonated beverages, caffeine (including tea & chocolate), and acidic foods, (tomatoes, citrus, onions, peppermints) spicy or fried/fatty foods. Do not lie down for 30 minutes after eating, and do not eat 2 hours prior to bedtime. Avoid wearing tight fitting clothing/ belts -continue omeprazole/prilosec at this time Activity:: see above Diet:: see above Discharge Orders Discharge Orders: Discharge Order (Routine); Ordered 06/20/21 Ordered By: Laney White DS: Diagnosis Discharge Diagnosis (1) Eosinophilic esophagitis: Status: Acute (2) SOB (shortness of breath): Status: Acute (3) Pharyngoesophageal dysphagia: Status: Acute (4) Chronic throat pain: Status: Acute
--- NOTE | 2021-06-21 06:42 | W.ANESPRE ---
General Info Date of Service Date Performed: 06/21/21 Height: 5 ft 8.5 in Weight: 74.049 kg Body Mass Index (BMI): 24.4 Surgical Procedure: Operation Date: 06/21/21 08:20 Proposed Procedures Side Surgeon p Gastroscopy Laney White, DO Meds Allergies and Home Medications Allergies Allergy/AdvReac Type Severity Reaction Status Date / Time latex Allergy Intermediate skin rash Verified 06/21/21 07:18 Home Medication Medication Instructions Recorded topiramate 50 mg tablet 50 mg PO BID #180 tab-cap 03/28/20 ipratropium 20 mcg-albuterol 100 1 puff INHALATION QID #2 ea 07/27/20 mcg/actuation mist for inhalation acetaminophen 500 mg tablet 500 mg PO Q6H PRN #120 tab-cap 10/03/20 omeprazole 20 mg capsule,delayed 20 mg PO DAILY #30 cap 03/18/21 release tramadol 50 mg tablet 50 mg PO Q6H PRN #120 tab-cap 06/19/21 Current Visit Medications: Current Medications Generic Name Dose Route Start Last Admin Trade Name Freq PRN Reason Stop Dose Admin Hyoscyamine Sulfate 0.125 mg 06/20/21 15:44 Hyoscyamine 0.125 Mg Sl/Oral/Chew SL DIRECTED PRN Ringer's Solution 1,000 mls @ 80 mls/hr 06/21/21 06:00 IV 06/24/21 23:59 INFUSION [facility] IV Miscellaneous Supplies 1 each 06/21/21 06:00 Iv Access IV 06/24/21 23:59 DIRECTED GUANAKITO Ondansetron HCl 4 mg 06/20/21 15:44 Ondansetron 4 Mg/2 Ml Vial IVP Q4H PRN PRN Nausea / Vomiting Sodium Chloride 0 ml 06/21/21 06:00 Normal Saline Flush 10 Ml Syr IV 06/24/21 23:59 PRN PRN Sodium Chloride 0 ml 06/21/21 06:00 Normal Saline 10 Ml Vial IJ 06/24/21 23:59 DIRECTED PRN Sterile Water 0 ml 06/21/21 06:00 Water,Injection,Sterile 10 Ml Vial IJ 06/24/21 23:59 DIRECTED PRN PFSH Active Problems Active Problems: Problem Status Onset Code Eosinophilic esophagitis K20.0 SOB (shortness of breath) R06.02 Pharyngoesophageal dysphagia R13.14 Chronic throat pain R07.0, G89.29 Elevated glucose R73.09 Encounter for annual physical exam Z00.00 Migraine G43.909 Headache R51 History of arthroscopy of knee Z98.890 Joint pain M25.50 Mental retardation F79 Knee pain M25.569 Full thickness rotator cuff tear M75.120 Chest wall pain 12/15/17 R07.89 Medical History Medical History Torn rotator cuff Surgical History Surgical History Arthroplasty of knee Dr. Witt; right knee H/O rotator cuff surgery 2006 2011 H/O wrist surgery History of esophagogastroduodenoscopy (EGD) Tobacco Smoking/Tobacco Use Status: Never Passive smoking exposure: No Alcohol Alcohol Intake: current Alcohol intake frequency: holidays/special occasions only Substance Use Substance use: Never Substance use type: does not use Vital Signs and Lab Results Vital Signs Most Recent Vital Signs in EMR: Temp Pulse Resp BP Pulse Ox 36.5 C 74 18 122/79 99 06/21/21 07:09 06/21/21 07:09 06/21/21 07:09 06/21/21 07:09 06/21/21 07:09 Lab Results Blood Type / Crossmatch: No Data to Display Complete Blood Count: No Data to Display Complete Metabolic Panel: No Data to Display Liver Function Panel: No Data to Display Coagulation Panel: No Data to Display Cardiac Panel: No Data to Display Arterial Blood Gas: No Data to Display Venous Blood Gas: No Data to Display Pancreas Panel: No Data to Display Thyroid Panel: No Data to Display Infectious Disease: Coronavirus (COVID-19)(PCR) Negative (Negative) 06/19/21 15:20 06/19/21 Coronavirus 2019 Source Nasal/Nares 06/19/21 15:20 06/19/21 Blood Cultures: No Data to Display Toxicology Panel: No Data to Display Imaging and Studies Imaging and Studies Study information below may be from another EMR and interpreted by another provider. Please see original notes in EMR for more complete details. Echocardiogram Summary: 05/2021: LVEF 60%, no hemodynamically sig valve issues. Anesthesia Assessment and Plan Anesthesia History Personal History: No History of Anesthesia Complications Family History: No Family History of Anesthesia Complications Exercise Tolerance Exercise Tolerance: Metabolic Equivalents>4 Cardiac & Pulmonary Exam Cardiac Exam: Normal S1/S2 Heart Sounds Pulmonary Exam: Clear Bilateral Breath Sounds Implantable Cardiac Device Does patient have a Pacemaker or an ICD?: No Airway Exam Known Difficult Airway: No Mallampati Class: 1 Mouth Opening: Normal (> 3cm) Thyromental Distance: Greater than 3 cm Neck Range of Motion: Full ROM Neck Circumference: Normal Teeth Condition: Edentulous ASA Classification ASA Score: ASA 2 Emergency Case?: No NPO Status NPO Status: NPO Clears >2 hours, Solids >8 hours Anesthesia Plan Resuscitation Status: Full Code Anesthesia Technique: General Anesthesia Airway Planned: Natural Airway Monitors Used: Standard Monitors Preoperative Comments:: 41 yo male for EGD due to dysphagia, throat pain. Sig PMHx: asthma (albut/iprat), GERD (omep), former smoker, occ EtOH.
[2021-06-21 07:09] VITALS: BP 122/79; PULSE 74; RESP 18; TEMP 36.5; O2SAT 99
[2021-06-21] MEDS: Lactated Ringers 1,000 ML 80 ML IV (07:28)
[2021-06-21 07:42] VITALS: BMI 24.4
--- NOTE | 2021-06-21 08:16 | STOM_PTH ---
PATIENT: Rahat Vazquez LOC: [facility] U#:[id number] AGE/SX: 41/M ROOM: RE06/21/[address]: Laney White : 1980 BED: DIS: 06/21/2021 SPEC #: [id number] RECD: 06/21/21 12:23 STATUS: SHILA RE #: [id number] JIMENA: 06/21/21 08:[address]: Laney White DEPT: Surgical Specimen RECD BY: Yadi Norwood ENTERED: 06/21/21 12:26 SP TYPE: STOMACH OTHR DR: Francis Ring, [employer] Tissues: 1 - BIOPSY BOWEL 2 - BIOPSY BOWEL 3 - STOMACH BIOPSY 4 - STOMACH BIOPSY 5 - ESOPHAGUS BIOPSY 6 - ESOPHAGUS BIOPSY Procedures: GROSS AND MICRO LEVEL 4 Comments: [id number]
[2021-06-21 09:00] VITALS: BP 108/68; PULSE 72; RESP 18; TEMP 36.1; O2SAT 96
--- NOTE | 2021-06-21 09:52 | W.ANESPOSTOP ---
Postoperative Evaluation Date, Time and Location Date Performed: 06/21/21 Time Performed: 09:52 Patient Location: Day Surgery Unit Vital Signs Most Recent Imported Vital Signs: Most Recent Vital Signs Temp Pulse Resp BP Pulse Ox 36.1 C L 72 18 108/68 96 06/21/21 09:00 06/21/21 09:00 06/21/21 09:00 06/21/21 09:00 06/21/21 09:00 Pain Score Most Recent Pain Score: Most Recent Pain Score Pain Level 0 06/21/21 09:00 Assessment Mental Status: Awake (Alert & Oriented to Patient Baseline) Airway and Respiratory Function: Patent airway with normal (patient baseline) respiratory exam Cardiovascular Function: Hemodynamically Stable Hydration Status: Adequately Hydrated Nausea & Vomiting: No Nausea or Vomiting Pain: Pt. Denies Any Pain Peripheral Nerve Block: Patient did not receive a nerve block
== END 2021-06-21 10:00 | disposition home or self-care (01) ==
LOC: SUR 06:54
PROVIDERS: PCP Nurse Practitioner Family; Visit Provider Surgery
PROC: 0DJ68ZZ Inspection of Stomach, Via Natural or Artificial Opening Endoscopic (ICD-10-PCS; CPT 43235; principal; 2021-06-21 08:15)
DX: K21.00 Gastro-esophageal reflux disease with esophagitis, without bleeding (principal); R13.14 Dysphagia, pharyngoesophageal phase; R73.9 Hyperglycemia, unspecified; K31.89 Other diseases of stomach and duodenum; K20.0 Eosinophilic esophagitis
CPT/HCPCS: 43239; 88305; J2001

== ENCOUNTER 2021-07-01 03:47 | Outpatient (CLI) | payer BC, SELFPAY ==
[2021-07-02 17:56] LABS: Baker's Yeast, IgE <0.35 kU/L; Banana, IgE <0.35 kU/L; Barley, IgE 0.54 kU/L; Beef IgE <0.35 kU/L; Black/White Pepper IgE <0.35 kU/L; Broccoli IgE <0.35 kU/L; Cacao/Cocoa, IgE <0.35 kU/L; Cinnamon, IgE <0.35 kU/L; Corn-Food IgE <0.35 kU/L; Egg Whole IgE <0.10 kU/L; Milk, IgE <0.35 kU/L; Onion, IgE 0.41 kU/L; Soybean IgE <0.35 kU/L; Strawberry, IgE <0.35 kU/L; White Potato, IgE <0.35 kU/L
== END 2021-07-01 03:48 | disposition home or self-care (01) ==
LOC: LBO 03:48
PROVIDERS: PCP Nurse Practitioner Family; Visit Provider Surgery
DX: K20.0 Eosinophilic esophagitis (principal); R13.14 Dysphagia, pharyngoesophageal phase
CPT/HCPCS: 36415; 86003

== ENCOUNTER 2021-07-09 19:03 | Outpatient (REF) | payer BC, SELFPAY ==
[2021-07-11 15:23] LABS: COVID-19 RT-PCR UVMMC Result Presumptive Positive (Negative)
== END 2021-07-09 19:04 | disposition home or self-care (01) ==
LOC: LBN 19:03
PROVIDERS: PCP Nurse Practitioner Family; Visit Provider Nurse Practitioner Family
DX: Z20.822 Contact with and (suspected) exposure to COVID-19 (principal)
CPT/HCPCS: U0003

== ENCOUNTER 2021-07-12 15:18 | Outpatient (REF) | payer BC, SELFPAY ==
[2021-07-13 11:55] LABS: COVID-19 RT-PCR UVMMC Result Negative (Negative)
== END 2021-07-12 15:19 | disposition home or self-care (01) ==
LOC: LBN 15:18
PROVIDERS: PCP Nurse Practitioner Family; Visit Provider Physician Assistant
DX: Z20.822 Contact with and (suspected) exposure to COVID-19 (principal)
CPT/HCPCS: U0003

== ENCOUNTER 2022-01-20 14:11 | Outpatient (CLI) | payer BC, SELFPAY ==
[2022-01-20 15:05] LABS: TSH (W/Ref FT4) 0.54 uIU/mL (0.36-3.74)
== END 2022-01-20 14:12 | disposition home or self-care (01) ==
LOC: LBO 14:13
PROVIDERS: Physician Assistant; PCP Nurse Practitioner Family; Visit Provider Nurse Practitioner Adult Health
DX: J02.9 Acute pharyngitis, unspecified (principal)
CPT/HCPCS: 36415; 84443

== ENCOUNTER 2022-07-17 15:31 | Emergency (ER) | payer BC, SELFPAY ==
[2022-07-17 15:34] VITALS: BP 128/65; PULSE 79; RESP 18; TEMP 36.8; O2SAT 96
--- NOTE | 2022-07-17 15:45 | DI.RAD_ITS ---
Exam(s) XR WRIST LT COMPLETE EXAM: XR WRIST LT COMPLETE CLINICAL HISTORY: pain and swelling. TECHNIQUE: 2D digital imaging was performed of the left wrist. Three images were obtained. PA, obl ique and lateral views were obtained. COMPARISON: None. FINDINGS: BONES: No acute fracture is present. No bony destructive lesion is seen. JOINTS: The carpal bones are normally aligned. SOFT TISSUE: Normal. IMPRESSION: Unremarkable radiographs of the left wrist. DATA REPOSITORY: RADIATION DOSE DELIVERED:
--- NOTE | 2022-07-17 16:20 | ED.GENADUL_ITS ---
Discharge Plan Disposition Patient Disposition: Home Discharge Details Clinical Impression: Acute wrist pain Primary Care Provider: Francis Ring ED Provider: Yadi Palmer Home Meds and New Rx's Prescriptions: Continued acetaminophen [Acetaminophen Extra Strength] 500 mg tablet 500 mg PO Q6H PRN (Reason: pain) Qty: 120 4RF pantoprazole [Protonix] 40 mg tablet,delayed release (DR/EC) 40 mg PO DAILY Qty: 90 12RF topiramate 50 mg tablet 50 mg PO BID Qty: 180 4RF Combivent Respimat 20-100 mcg/actuation mist 1 puff Inhalation QID Qty: 2 5RF Rx Instructions: dx: Asthma tramadol 50 mg tablet 50 mg PO Q6H PRN Qty: 120 3RF Discharge Instructions Additional Instructions: Take Tylenol and ibuprofen as needed for pain Tylenol 650 mg every 6 hours as needed Ibuprofen 600 mg every 8 hours as needed with food Wear your wrist splint Follow up with orthopedics Refrain from repetitive motion or heavy lifting Try to rest the wrist for the next several days You may also apply Voltaren gel which is [id number] to the affected area Return earlier should you have fever, chills, redness, or with any new or worsening complaints Referrals: Francis Ring NP [Primary Care Provider] - Jonathan Wallis MD [ [facility] STAFF PHYSICIAN] - Discharge Data Discharge Date/Time-TO BE ENTERED AT DEPARTURE: 07/17/22 16:43 Medical Decision Making This 41-year-old male presents with left wrist pain which is atraumatic, no visible signs of trauma, x-ray does not show acute abnormality We will refer to orthopedics We will place in a wrist splint Return precautions reviewed and patient expressed understanding Medical Records Medical records reviewed: Yes I reviewed the patient's medical records. Lab Data Lab results reviewed: Yes I reviewed the patient's lab results. HPI General Date/Time Provider Initiated Documentation: 07/17/22 15:43 . HPI Narrative: This 42-year-old male presents with left wrist pain for the past several days. He states that it was nontraumatic in nature. He states he thinks he had a similar episode in his right wrist and had a ganglion cyst removed in 2010 and his pain resolved. He denies any repetitive motion at work. He denies any fever or chills. He denies any strength or sensation change. He denies any redness. Related Data Home Medications Medication Instructions Recorded Confirmed topiramate 50 mg tablet 50 mg PO BID #180 tab-caps 03/28/20 07/17/22 acetaminophen 500 mg tablet 500 mg PO Q6H PRN pain #120 10/03/20 07/17/22 (Acetaminophen Extra Strength) tab-caps pantoprazole 40 mg tablet,delayed 40 mg PO DAILY #90 tabs 07/08/21 07/17/22 release (Protonix) ipratropium 20 mcg-albuterol 100 1 puff inhalation QID #2 ea 05/15/22 07/17/22 mcg/actuation mist for inhalation (Combivent Respimat) tramadol 50 mg tablet 50 mg PO Q6H PRN #120 tab-caps 05/15/22 07/17/22 Previous Rx's Medication Instructions Recorded topiramate 50 mg tablet 50 mg PO BID #180 tab-caps 03/28/20 acetaminophen 500 mg tablet 500 mg PO Q6H PRN pain #120 10/03/20 (Acetaminophen Extra Strength) tab-caps pantoprazole 40 mg tablet,delayed 40 mg PO DAILY #90 tabs 07/08/21 release (Protonix) ipratropium 20 mcg-albuterol 100 1 puff inhalation QID #2 ea 05/15/22 mcg/actuation mist for inhalation (Combivent Respimat) tramadol 50 mg tablet 50 mg PO Q6H PRN #120 tab-caps 05/15/22 Allergies Allergy/AdvReac Type Severity Reaction Status Date / Time barley Allergy Intermediate Verified 07/17/22 15:36 latex Allergy Intermediate skin rash Verified 07/17/22 15:36 wheat Allergy Intermediate Verified 07/17/22 15:36 onions Allergy Intermediate Uncoded 07/17/22 15:36 General Stated Complaint: Orthopedic TERRENCE: 4 PFSH All Active Problems (Updated 07/17/22 @ 16:23 by ANNELIESE Pichardo) Acute wrist pain (Acute) Chronic sore throat (Acute) Costochondral chest pain (Acute) Gastrointestinal food allergy (Acute) mild: barley/onion strong: wheat Eosinophilic esophagitis (Acute) SOB (shortness of breath) (Acute) occurs at nighttime Elevated glucose (Acute) Migraine (Chronic) Mental retardation (Chronic) Knee pain (Chronic) Medical History Torn rotator cuff Surgical History H/O rotator cuff surgery 2006 2011 H/O wrist surgery History of arthroscopy of knee History of arthroscopy of right knee History of esophagogastroduodenoscopy (EGD) (~06/21/21) Family History Mother History of surgery on right wrist Father High cholesterol History of total hip replacement Sister No problems noted. Brother No problems noted. 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 [employer] Pets and animals: Yes (FERRETS,adali) Pets and animals: dog(s) Sexually active: No Do you think of yourself as: straight/heterosexual Current gender identity: male What is your relationship status?: living with partner How often do you talk on the phone with friends or family?: once per week How often do you get together with friends or relatives?: decline to answer How often do you attend zoroastrianism or holiness services?: decline to answer Do you belong to any clubs or organized social groups?: decline to answer Panel score (0-1 are the most socially isolated patients): 1 What type of physical activity do you participate in: none Duration: < 15 minutes/day Frequency: 3-4 times per week Peggy/Restoration: Gnosticist Special peggy needs: No Do you feel safe at home: Yes Do you feel safe in your relationship?: Yes Exam Extrem Other: Tenderness to left wrist, no obvious swelling or erythema, neurovascularly intact Course Vital Signs Vital signs: Vital Signs Temperature 36.8 C 07/17/22 15:34 Pulse 79 07/17/22 15:34 Respiratory Rate 18 07/17/22 15:34 Blood Pressure 128/65 02/23/23 15:34 Pulse Oximetry 96 07/17/22 15:34 Temperature 36.8 C 07/17/22 15:34 Temperature Source Oral 07/17/22 15:34 Pulse 79 07/17/22 15:34 Respiratory Rate 18 07/17/22 15:34 Respiratory Effort Normal, Non-Labored 07/17/22 15:35 Blood Pressure 128/65 07/17/22 15:34 Pulse Oximetry 96 07/17/22 15:34 Oxygen Delivery Method Room Air 07/17/22 15:34 Oxygen Flow Rate 0 07/17/22 15:34 PAWSS Have you Been Recently Intoxicated or Drunk Within the Last 30 days?: No Have you Ever Experienced Previous Episodes of Alcohol Withdrawal?: No Have you ever Experienced Withdrawal Seizures?: No Have you ever Experienced Delirium Tremens(DT)s?: No Have you ever undergone Alcohol Rehabilitation Treatment (i.e, inpt ot outpatient treatment programs)?: No Have you ever Experienced Blackouts?: No Have you ever Combined Alcohol with other Downers within the last 90 days?: No Have you ever Combined Alcohol with any other Substance of Abuse during the last 90 days?: No Positive Blood Alcohol level on Presentation? [PCS.BAL]: No Evidence of Increased Autonomic Activity (i.e. HR>120, tremor, sweating, agitation, nausea)?: No Result: 0
[2022-07-17 16:42] VITALS: BP 118/76; PULSE 75; RESP 18; O2SAT 97
== END 2022-07-17 16:43 | disposition home or self-care (01) ==
PROVIDERS: Emergency Provider Physician Assistant; PCP Nurse Practitioner Family
DX: M25.532 Pain in left wrist (principal)
CPT/HCPCS: 29125; 99283; 73110

== ENCOUNTER 2022-09-10 02:05 | Outpatient (CLI) | payer BC, SELFPAY ==
--- NOTE | 2022-09-10 06:30 | DI.MRI_ITS ---
Exam(s) MR UPPER JOINT LT WO EXAM: MR UPPER JOINT LT WO CLINICAL HISTORY: PAIN,ganglion cyst volar aspect lt wrist, m67.432. TECHNIQUE: Multiplanar multisequence MRI was performed. COMPARISON: Comparison x-ray is 06/27/2022. FINDINGS: The examination is limited due to patient motion artifact. BONES: There is hyperintense signal seen in the scaphoid. There is no linear lucency to suggest a fr acture. There is a small subchondral cyst in the distal scaphoid. There are small subchondral cysts seen in the ulnar styloid process. There is very mild increased signal seen in the pisiform. Marro w signal is otherwise within normal limits. JOINTS: There is a small amount of fluid in the lateral aspect of the radiocarpal joint in the scapho trapezium joint. There is a small amount of fluid in the distal radial ulnar joint. The carpal julee nts are otherwise unremarkable. TENDONS: Flexors: Unremarkable. Extensors: Unremarkable. MUSCLES: Unremarkable. MEDIAN NERVE: Unremarkable on this noncontrast examination. ULNAR NERVE: Unremarkable on this noncontrast examination. SOFT TISSUES: There is a 0.5 x 0.2 cm cyst associated with the pisotriquetral joint which may represe nt a tiny ganglion cyst. LIGAMENTS: Unremarkable. TRIANGULAR FIBROCARTILAGE: Unremarkable. OTHER: IMPRESSION: 1. 0.5 x 0.2 cm fluid collection associated with the pisotriquetral joint which may represent a tiny ganglion cyst. 2. Marrow edema seen in the scaphoid without evidence of a fracture. This is nonspecific. This may represent entity such as bone contusion, AVN. 3. Small amount of fluid in the carpal joints and the distal radial ulnar joint. DATA REPOSITORY:
== END 2022-09-10 02:25 ==
PROVIDERS: PCP Nurse Practitioner Family; Visit Provider Student in an Organized Health Care Education/Training Program
DX: M67.432 Ganglion, left wrist (principal)
CPT/HCPCS: 73221

== ENCOUNTER 2022-10-21 15:49 | Outpatient (CLI) | payer BC, SELFPAY ==
[2022-10-21 15:54] LABS: Hemoglobin A1C 5.1 % (<5.7)
[2022-10-21 16:26] LABS: Calculated LDL 129 mg/dL (<100); Cholesterol 207 mg/dL (<200); HDL Cholesterol 60 mg/dL (40-60); Triglyceride 94 mg/dL (<150)
== END 2022-10-21 15:50 | disposition home or self-care (01) ==
LOC: LBO 15:51
PROVIDERS: PCP Nurse Practitioner Family; Visit Provider Nurse Practitioner Family
DX: E78.00 Pure hypercholesterolemia, unspecified (principal); Z13.1 Encounter for screening for diabetes mellitus
CPT/HCPCS: 36415; 80061; 83036

== ENCOUNTER 2022-12-09 12:39 | Day surgery (SDC) | payer BC, SELFPAY ==
[2022-12-09 13:05] VITALS: BP 131/89; PULSE 78; RESP 18; TEMP 36.9; O2SAT 99
[2022-12-09] MEDS: Lactated Ringers 1,000 ML 80 ML IV (13:45)
--- NOTE | 2022-12-09 14:19 | W.ANESPRE ---
General Info Date of Service Date Performed: 12/09/22 Height: 6 ft Weight: 73.5 kg Body Mass Index (BMI): 21.9 Surgical Procedure: Operation Date: 12/09/22 14:10 Proposed Procedure Side Surgeon p Wrist ECTR Left Rahat Leonard MD Meds Allergies and Home Medications Allergies Allergy/AdvReac Type Severity Reaction Status Date / Time barley Allergy Intermediate Verified 12/09/22 13:18 latex Allergy Intermediate skin rash Verified 12/09/22 13:18 wheat Allergy Intermediate Verified 12/09/22 13:18 onions Allergy Intermediate Uncoded 12/09/22 13:18 Home Medication Medication Instructions Recorded acetaminophen 500 mg tablet 500 mg PO Q6H PRN pain #120 10/03/20 (Acetaminophen Extra Strength) tab-caps ipratropium 20 mcg-albuterol 100 1 puff inhalation QID #2 ea 05/15/22 mcg/actuation mist for inhalation (Combivent Respimat) tramadol 50 mg tablet 50 mg PO Q6H PRN #120 tab-caps 05/15/22 pantoprazole 40 mg tablet,delayed 40 mg PO DAILY #90 tabs 10/17/22 release (Protonix) topiramate 100 mg tablet 100 mg PO BID #90 tab-caps 10/17/22 Current Visit Medications: Current Medications Generic Name Dose Route Start Last Admin Trade Name Freq PRN Reason Stop Dose Admin Acetaminophen 650 mg 12/09/22 07:29 Acetaminophen 325 Mg Tab PO 01/08/23 07:28 Q4H PRN PRN Hydrocodone Bitart/Acetaminophen 0 tab 12/09/22 07:29 Hydrocodone 5/Acetaminophen 325 Tab PO 01/08/23 07:28 Q3H PRN PRN Pain Ringer's Solution 1,000 mls @ 80 mls/hr 12/09/22 06:00 12/09/22 13:45 IV 01/07/23 23:59 80 mls/hr INFUSION G[facility]O Administration Cefazolin Sodium/Dextrose 2 gm in 50 mls @ 100 mls/hr 12/09/22 06:00 Ancef Duplex IVPB 01/07/23 23:59 PREOP G[facility] IV Miscellaneous Supplies 1 each 12/09/22 06:00 Iv Access IV 01/07/23 23:59 DIRECTED GUANAKITO Sodium Chloride 0 ml 12/09/22 06:00 Normal Saline Flush 10 Ml Syr IV 01/07/23 23:59 PRN PRN Sodium Chloride 0 ml 12/09/22 06:00 Normal Saline 10 Ml Vial IJ 01/07/23 23:59 DIRECTED PRN Sterile Water 0 ml 12/09/22 06:00 Water,Injection,Sterile 10 Ml Vial IJ 01/07/23 23:59 DIRECTED PRN PFSH Active Problems Active Problems: Problem Status Onset Code Full thickness rotator cuff tear M75.120 Knee pain M25.569 Mental retardation F79 Migraine G43.909 Elevated glucose R73.09 SOB (shortness of breath) R06.02 Eosinophilic esophagitis K20.0 Gastrointestinal food allergy K52.29 Costochondral chest pain R07.89 Chronic sore throat J31.2 Elevated cholesterol E78.00 Carpal tunnel syndrome, left G56.02 Medical History Medical History Torn rotator cuff Medical History Comments:: Pt. has. learning impaired, minimal reading skills, is able to skin for self, keep explanations simple. 3th-4th grade level. Surgical History Surgical History (Updated 12/09/22 @ 13:19 by Caitlin Thurston) H/O rotator cuff surgery 2006 2011 H/O wrist surgery 2010 History of arthroscopy of knee History of arthroscopy of right knee History of esophagogastroduodenoscopy (EGD) (~06/21/21) Tobacco Smoking/Tobacco Use Status: Former Tobacco Use Passive smoking exposure: Yes Second hand exposure: Yes Alcohol Alcohol Intake: current Alcohol intake frequency: holidays/special occasions only Alcohol type: beer and hard liquor Substance Use Substance use: Never Substance use type: does not use Vital Signs and Lab Results Vital Signs Most Recent Vital Signs in EMR: Most Recent Vital Signs Temp Pulse Resp BP Pulse Ox 36.9 C 78 18 131/89 99 12/09/22 13:05 12/09/22 13:05 12/09/22 13:05 12/09/22 13:05 12/09/22 13:05 Lab Results Blood Type / Crossmatch: No Data to Display Complete Blood Count: No Data to Display Complete Metabolic Panel: No Data to Display Liver Function Panel: No Data to Display Coagulation Panel: No Data to Display Cardiac Panel: No Data to Display Arterial Blood Gas: No Data to Display Venous Blood Gas: No Data to Display Pancreas Panel: No Data to Display Thyroid Panel: No Data to Display Infectious Disease: No Data to Display Blood Cultures: No Data to Display Toxicology Panel: No Data to Display Imaging and Studies Imaging and Studies Study information below may be from another EMR and interpreted by another provider. Please see original notes in EMR for more complete details. Echocardiogram Summary: 05/2021: LVEF 60%, no hemodynamically sig valve issues. Anesthesia Assessment and Plan Anesthesia History Personal History: No History of Anesthesia Complications Family History: No Family History of Anesthesia Complications Exercise Tolerance Exercise Tolerance: Metabolic Equivalents>4 Pertinent Negatives Pertinent Negatives: No Symptoms of GERD Cardiac & Pulmonary Exam Cardiac Exam: Normal S1/S2 Heart Sounds Pulmonary Exam: Clear Bilateral Breath Sounds Implantable Cardiac Device Does patient have a Pacemaker or an ICD?: No Airway Exam Known Difficult Airway: No Mallampati Class: 2 Mouth Opening: Normal (> 3cm) Thyromental Distance: Greater than 3 cm Neck Range of Motion: Full ROM Neck Circumference: Normal Teeth Condition: Edentulous ASA Classification ASA Score: ASA 2 Emergency Case?: No NPO Status NPO Status: NPO Clears >2 hours, Solids >8 hours Anesthesia Plan Resuscitation Status: Full Code Anesthesia Technique: General Anesthesia Airway Planned: Natural Airway Monitors Used: Standard Monitors
[2022-12-09 14:20] VITALS: BMI 21.9
--- NOTE | 2022-12-09 14:44 | HPE_ITS ---
Assessment and Plan Assessment and plan (1) Carpal tunnel syndrome, left: Status: Acute Assessment and plan: Dionicio is a 42-year-old who has carpal tunnel syndrome of the left side. Please the office note for complete detailed history. He is here today to proceed with left carpal tunnel release. He has no other medical issues. I discussed the technical details of carpal tunnel release and that I perform an endoscopic release, but would make a larger, open, incision if necessary for visualization. I discussed the risks of the procedure to include, but not limited to, bleeding, infection, palmar pain, stiffness, damage to nerves, damage to ve ssels, damage to tendons, weakness, recurrence, and incomplete release. Given these risks, Dionicio desires to proceed. History of Present Illness History of Present Illness Chief Complaint: Left Carpal Tunnel Syndrome Narrative: Dionicio is a 42-year-old male seen in clinic for left carpal tunnel syndrome. Please the previous office note for complete detailed history. He denies any current medical issues. He denies any chest pain or shortness of breath. Review of Systems All systems reviewed & are unremarkable except as noted in HPI and below PFSH All Active Problems Knee pain (Chronic) Mental retardation (Chronic) Migraine (Chronic) Elevated glucose (Acute) SOB (shortness of breath) (Acute) occurs at nighttime Eosinophilic esophagitis (Acute) Gastrointestinal food allergy (Acute) mild: barley/onion strong: wheat Costochondral chest pain (Acute) Chronic sore throat (Acute) Elevated cholesterol (Chronic) Carpal tunnel syndrome, left (Acute) Medical History Torn rotator cuff Surgical History H/O rotator cuff surgery 2006 2011 H/O wrist surgery 2010 History of arthroscopy of knee History of arthroscopy of right knee History of esophagogastroduodenoscopy (EGD) (~06/21/21) Family History Mother History of surgery on right wrist Father High cholesterol History of total hip replacement Sister No problems noted. Brother No problems noted. 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 [employer] Pets and animals: Yes (FERRETS,adali) Pets and animals: dog(s) Sexually active: No Do you think of yourself as: straight/heterosexual Current gender identity: male What is your relationship status?: refused to answer How often do you talk on the phone with friends or family?: three or more times per week How often do you get together with friends or relatives?: three or more times per week How often do you attend rastafarian or latter day services?: decline to answer Do you belong to any clubs or organized social groups?: no Panel score (0-1 are the most socially isolated patients): 1 What type of physical activity do you participate in: none Frequency: does not exercise Peggy/Sabianist: None Special peggy needs: No Seatbelt use: always Helmet use: No Drive intox or ride w/intox corrugated fastener driver: No Do you feel safe at home: Yes Do you feel safe in your relationship?: Yes Meds Allergies and Home Medications Allergies Allergy/AdvReac Type Severity Reaction Status Date / Time barley Allergy Intermediate Verified 12/09/22 13:18 latex Allergy Intermediate skin rash Verified 12/09/22 13:18 wheat Allergy Intermediate Verified 12/09/22 13:18 onions Allergy Intermediate Uncoded 12/09/22 13:18 Home Medications Medication Instructions Recorded Confirmed Type acetaminophen 500 mg tablet 500 mg PO Q6H PRN pain #120 10/03/20 12/09/22 Rx (Acetaminophen Extra Strength) tab-caps ipratropium 20 mcg-albuterol 100 1 puff inhalation QID #2 ea 05/15/22 12/09/22 Rx mcg/actuation mist for inhalation (Combivent Respimat) tramadol 50 mg tablet 50 mg PO Q6H PRN #120 tab-caps 05/15/22 12/09/22 Rx pantoprazole 40 mg tablet,delayed 40 mg PO DAILY #90 tabs 10/17/22 12/09/22 Rx release (Protonix) topiramate 100 mg tablet 100 mg PO BID #90 tab-caps 10/17/22 12/09/22 Rx Exam Resp Effort & Inspection: normal respiratory effort Auscultation: clear to auscultation bilaterally Cardio Rate: regular rate Rhythm: regular rhythm Results Last Vital Signs Temp 36.9 C 12/09/22 13:05 Pulse 78 12/09/22 13:05 Resp 18 12/09/22 13:05 BP 131/89 12/09/22 13:05 Pulse Ox 99 12/09/22 13:05
[2022-12-09] MEDS: Lidocaine 1% Pres-Free W/EPI 1/200,000 30 ML VIAL (15:05)
--- NOTE | 2022-12-09 15:14 | W.PM.DSUDISC ---
Date of service: 12/09/22 Time of Service: 15:15 Discharge Plan Disposition Patient Disposition: Home Condition: Good Discharge Details Reason For Visit: Left carpal tunnel syndrome Attending Provider: Rahat Leonard Primary Care Provider: Francis Ring Home Meds and New Rx's Prescriptions: Continued acetaminophen [Acetaminophen Extra Strength] 500 mg tablet 500 mg PO Q6H PRN (Reason: pain) Qty: 120 4RF topiramate 100 mg tablet 100 mg PO BID Qty: 90 4RF pantoprazole [Protonix] 40 mg tablet,delayed release (DR/EC) 40 mg PO DAILY Qty: 90 12RF Combivent Respimat 20-100 mcg/actuation mist 1 puff Inhalation QID Qty: 2 5RF Rx Instructions: dx: Asthma tramadol 50 mg tablet 50 mg PO Q6H PRN Qty: 120 3RF Discharge Instructions Stand Alone Forms: Aisha Navarrete Tunnel Release Activity:: Elevate Remove Dressings/Wound Care:: 48 hours Shower/Bathe:: 48 hours Diet:: As Tolerated Discharge Orders Discharge Orders: Discharge Order (Routine); Ordered 12/09/22 Ordered By: Laney Irizarry DS: Diagnosis Discharge Diagnosis (1) Carpal tunnel syndrome, left: Status: Acute
[2022-12-09 15:15] VITALS: BP 101/67; PULSE 69; RESP 17; TEMP 36.3; O2SAT 94
--- NOTE | 2022-12-09 15:33 | W.ANESPOSTOP ---
Postoperative Evaluation Date, Time and Location Date Performed: 12/09/22 Time Performed: 15:33 Patient Location: Day Surgery Unit Vital Signs Most Recent Imported Vital Signs: Most Recent Vital Signs Temp Pulse Resp BP Pulse Ox 36.3 C L 69 17 101/67 94 12/09/22 15:15 12/09/22 15:15 12/09/22 15:15 12/09/22 15:15 12/09/22 15:15 Pain Score Most Recent Pain Score: Most Recent Pain Score Pain Level 0 12/09/22 15:15 Assessment Mental Status: Awake (Alert & Oriented to Patient Baseline) Airway and Respiratory Function: Patent airway with normal (patient baseline) respiratory exam Cardiovascular Function: Hemodynamically Stable Hydration Status: Adequately Hydrated Nausea & Vomiting: No Nausea or Vomiting Pain: Pt. Denies Any Pain Peripheral Nerve Block: Patient did not receive a nerve block
[2022-12-09 15:44] VITALS: BP 107/74; PULSE 69; RESP 16; TEMP 36.3; O2SAT 97
--- NOTE | 2022-12-09 21:49 | W.PM.OP ---
Date of service: 12/09/22 Time of Service: 15:15 Operative Note Operative Note DATE OF PROCEDURE: 12/09/22 PRE-OP DIAGNOSIS: Left Carpal Tunnel Syndrome POST-OP DIAGNOSIS: same PROCEDURE: Left Endoscopic Carpal Tunnel Release SURGEON: Rahat Leonard ANESTHESIA TYPE: General:No Airway Refer to Anesthesia Record ESTIMATED BLOOD LOSS: 0 PATHOLOGY: none sent TOURNIQUET TIME: 6 COMPLICATIONS: None Patient was transported to: same day Patient's condition: stable Indications: I have seen Dionicio in clinic for symptoms of carpal tunnel syndrome. The numbness, tingling, and pain limited function. Clinical exam findings confirmed the diagnosis of carpal tunnel syndrome. Nonoperative measures such as bracing, time, activity modifications had been tried but disability and pain persisted. I discussed carpal tunnel release with the patient. I reviewed the risks of the procedure to include, but not limited to, bleeding, infection, pain, stiffness, incomplete release, damage to nerves or vessels, persistent numbness, recurrence. Despite these risks, the patient elected to proceed. Findings: There was tightened carpal tunnel. This was dilated and released successfully with the endoscopic with increased space within the tunnel. The antebrachial fascia was released proximally freeing the median nerve at the wrist. Procedure Description: Dionicio was greeted in the preoperative holding area where the correct side was identified and marked. The consent was reviewed with the patient and signed. The history and physical was updated. All questions were answered. He was taken back to the operating room. The patient was placed into the supine position on the operating room table with the left arm on an arm board. A nonsterile tourniquet was placed high onto the arm. All bony prominences were well padded. Prophylactic antibiotics in the form of Cefazolin were administered. The left arm was then prepped with Chloraprep and draped in a standard fashion with stockinette and extremity drape. A timeout to confirm correct identity, side and site, procedure, allergies, anesthesia, and medical concerns was performed. The surgical site was marked in the volar wrist creases in line with the radial border of the fourth ray. This area was anesthetized with approximately 6cc of 1% Lidocaine. The limb was then exsanguinated with an Esmarch. The skin was incised with a 15 blade, approximately 1cm. The skin only was cut and the deeper tissue was dissected bluntly with a tenotomy scissor, avoiding passing nerve and venous structures. The fascia was penetrated and opened bluntly. A two-prong skin hook was placed under this proximal fascial edge. A series of hamate finders were used to identify and dilate the carpal tunnel. Synovial elevator was used to free synovial attachments to the underside of the transverse carpal ligament. My thumb was kept in the palm to fanny the distal extent of the carpal tunnel and correctly position the hand. The [employer]aire endoscope was inserted without difficulty and without resistance. Excellent visualization showed horizontally running fibers of the transverse carpal ligament (TCL). The distal extent of the TCL was visualized and the end of the scope palpated with the thumb. The blade was elevated and withdrawn from distal to proximal. The TCL was split into two flaps. The endoscope was reinserted to confirm complete release and any remnant ligament was incised. The scope was withdrawn and the proximal aspect of the carpal tunnel was grossly inspected and appeared release with the median nerve visible. The antebrachial fascia at the level of the wrist was then freed from the overlying skin and then the underlying median nerve with blunt dissection. This was transected longitudinally for about 3cm proximal to the wrist incision. The wound was then irrigated with easy flow of irrigant distally and proximally. The incision was closed with a single 4-0 Nylon suture. The wound was dressed with Xeroform, Gauze, Kerlix and Juan José. The tourniquet was deflated with the initial dressing and held with some pressure. Blood flow returned easily to all digits with capillary refill less than 2 seconds. The patient tolerated the procedure well and was returned to the Same Day Surgery area in a stable condition suffering no known complication.
== END 2022-12-09 16:17 | disposition home or self-care (01) ==
PROVIDERS: PCP Nurse Practitioner Family; Visit Provider Student in an Organized Health Care Education/Training Program
PROC: 01N54ZZ Release Median Nerve, Percutaneous Endoscopic Approach (ICD-10-PCS; CPT 29848; principal; 2022-12-09 14:00)
DX: G56.02 Carpal tunnel syndrome, left upper limb (principal)
CPT/HCPCS: 29848; J0690; J1100; J1885; J2250; J2405

== ENCOUNTER → 2023-05-13 03:13 | Outpatient (CLI) | payer BC, SELFPAY ==
--- NOTE | 2023-05-13 15:40 | DI.RAD_ITS ---
Exam(s) XR KNEE RT 3V AP,LAT,KAL EXAM: XR KNEE RT 3V AP,LAT,KAL CLINICAL HISTORY: Painful, popping/cracking, gives out,m25.569. TECHNIQUE: 2D digital imaging was performed. COMPARISON: No exams were available for comparison FINDINGS: 3 views There is no evidence of fracture or joint effusion. No joint space narrowing. No osteochondral defe cts. Bone density normal. No osseous lesions. IMPRESSION: No significant findings on these three views of the right knee. DATA REPOSITORY: RADIATION DOSE DELIVERED:
== END ==
PROVIDERS: PCP Nurse Practitioner Family; Visit Provider Nurse Practitioner Family
DX: M25.561 Pain in right knee (principal)
CPT/HCPCS: 73562

== ENCOUNTER → 2023-07-10 01:42 | Outpatient (CLI) | payer BC, SELFPAY ==
--- NOTE | 2023-07-10 08:30 | DI.MRI_ITS ---
Exam(s) MR LOWER JOINT RT WO EXAM: MR LOWER JOINT RT WO CLINICAL HISTORY: PAIN,CHONDROMALACIA PATELLA RT KNEE,M22.41. TECHNIQUE: Multiplanar multisequence MRI was performed. COMPARISON: CR XR KNEE RT 3V AP,LAT,KAL from 05/13/2023 FINDINGS: BONES: There is no fracture or contusion pattern. JOINTS: There is thinning of the articular cartilage of the inferior aspect of the patella with mild subchondral edema. No effusion is present. TENDONS: Extensor mechanism: Unremarkable. Medial retinaculum: Unremarkable. Lateral retinaculum: Unremarkable. Popliteus: Unremarkable. MUSCLES: Unremarkable. MENISCI: There is a tear of the body and posterior horn of the medial meniscus. The lateral meniscus is unremarkable. SOFT TISSUES: Unremarkable. LIGAMENTS: Anterior Cruciate: There is a sprain of the ACL. The fibers are intact. No evidence of a tear. Posterior Cruciate: Unremarkable. Medial Collateral:Unremarkable. Lateral Collateral: Unremarkable. OTHER: IMPRESSION: 1. Tear of the body and posterior horn of the medial meniscus. 2. ACL sprain. 3. No evidence of a ligament tear. DATA REPOSITORY:
== END ==
PROVIDERS: PCP Nurse Practitioner Family; Visit Provider Student in an Organized Health Care Education/Training Program
DX: M23.222 Derangement of posterior horn of medial meniscus due to old tear or injury, left knee (principal)
CPT/HCPCS: 73721

== ENCOUNTER 2023-08-18 10:05 | Day surgery (SDC) | payer BC, SELFPAY ==
[2023-08-18] VITALS (9 sets, daily range): BP systolic 96–127; BP diastolic 55–84; PULSE 51–70; RESP 14–18; TEMP 36.1–36.6; O2SAT 98–100; BMI 22.4
--- NOTE | 2023-08-18 09:34 | W.PM.DSUDISC ---
Date of service: 08/18/23 Time of Service: 09:34 Discharge Plan Disposition Patient Disposition: Home Condition: Good Discharge Details Reason For Visit: R knee arthroscopy Attending Provider: Rahat Leonard Primary Care Provider: Francis Ring Home Meds and New Rx's Prescriptions: New acetaminophen 500 mg tablet 1,000 mg PO TID Qty: 90 0RF ibuprofen 600 mg tablet 600 mg PO TID PRN (Reason: pain) Qty: 90 0RF Continued topiramate 100 mg tablet 100 mg PO BID Qty: 90 4RF pantoprazole [Protonix] 40 mg tablet,delayed release (DR/EC) 40 mg PO DAILY Qty: 90 12RF Combivent Respimat 20-100 mcg/actuation mist 1 puff Inhalation QID Qty: 2 5RF Rx Instructions: dx: Asthma tramadol 50 mg tablet 50 mg PO Q6H PRN Qty: 120 3RF Discontinued acetaminophen [Acetaminophen Extra Strength] 500 mg tablet 500 mg PO Q6H PRN (Reason: pain) Qty: 120 4RF Discharge Instructions Additional Instructions: Medications: You should use Tylenol and Ibuprofen for baseline pain. You may use the Tramadol you have already been prescribed for breakthrough pain. Stand Alone Forms: Anesthesia Discharge Inst., Crutch Training Instructions, Dayana Cabrales (CYDNEY)Aisha Knee Arthroscopy Referrals: Rahat Leonard MD [ [facility] STAFF PHYSICIAN] - 08/31/23 2:00 pm Equipment/Supplies: Partial Weight Bearing Crutches Activity:: Activity as Tolerated Remove Dressings/Wound Care:: 72 hours Shower/Bathe:: 72 hours Diet:: As Tolerated Discharge Orders Discharge Orders: Discharge Order (Routine); Ordered 08/18/23 Ordered By: Dav Ford DS: Diagnosis Discharge Diagnosis (1) Complex tear of medial meniscus of right knee: Status: Acute
[2023-08-18] MEDS: Lactated Ringers 1,000 ML 80 ML IV (11:40)
--- NOTE | 2023-08-18 11:50 | W.ANESPRE ---
General Info Date of Service Date Performed: 08/18/23 Height: 6 ft Weight: 74.9 kg Body Mass Index (BMI): 22.4 Surgical Procedure: Operation Date: 08/18/23 13:25 Proposed Procedure Side Surgeon p Knee Arthroscopy, Partial Medial Menisectomy Right Rahat Leonard MD Meds Allergies and Home Medications Allergies Allergy/AdvReac Type Severity Reaction Status Date / Time barley Allergy Intermediate Other (See Verified 08/14/23 14:14 Comment) latex Allergy Intermediate skin rash Verified 08/14/23 14:14 wheat Allergy Intermediate Other (See Verified 08/14/23 14:14 Comment) onions Allergy Intermediate Other (See Uncoded 08/14/23 14:14 Comment) Home Medication Medication Instructions Recorded ipratropium 20 mcg-albuterol 100 1 puff inhalation QID #2 ea 05/15/22 mcg/actuation mist for inhalation (Combivent Respimat) pantoprazole 40 mg tablet,delayed 40 mg PO DAILY #90 tabs 10/17/22 release (Protonix) topiramate 100 mg tablet 100 mg PO BID #90 tab-caps 10/17/22 tramadol 50 mg tablet 50 mg PO Q6H PRN #120 tab-caps 07/01/23 acetaminophen 500 mg tablet 1,000 mg (2 x 500 mg) PO TID #90 08/18/23 tabs ibuprofen 600 mg tablet 600 mg PO TID PRN pain #90 tabs 08/18/23 Current Visit Medications: Current Medications Generic Name Dose Route Start Last Admin Trade Name Freq PRN Reason Stop Dose Admin Acetaminophen 650 mg 08/18/23 09:32 Acetaminophen 325 Mg Tab PO 09/17/23 09:31 Q4H PRN PRN Hydrocodone Bitart/Acetaminophen 0 tab 08/18/23 09:32 Hydrocodone 5/Acetaminophen 325 Tab PO 09/17/23 09:31 Q3H PRN PRN Pain Ringer's Solution 1,000 mls @ 80 mls/hr 08/18/23 06:00 08/18/23 11:40 IV 08/18/23 23:59 80 mls/hr INFUSION GUANAKITO Administration Cefazolin Sodium/Dextrose 2 gm in 50 mls @ 100 mls/hr 08/18/23 06:00 Ancef Duplex IVPB 08/18/23 23:59 PREOP GUANAKITO Tranexamic Acid/Sodium Chloride 100 mls @ 600 mls/hr 08/18/23 06:00 IVPB 08/18/23 23:59 PREOP GUANAKITO IV Miscellaneous Supplies 1 each 08/18/23 06:00 Iv Access IV 08/18/23 23:59 DIRECTED GUANAKITO Sodium Chloride 0 ml 08/18/23 06:00 Normal Saline Flush 10 Ml Syr IV 08/18/23 23:59 PRN PRN Sodium Chloride 0 ml 08/18/23 06:00 Normal Saline 10 Ml Vial IJ 08/18/23 23:59 DIRECTED PRN Sterile Water 0 ml 08/18/23 06:00 Water,Injection,Sterile 10 Ml Vial IJ 08/18/23 23:59 DIRECTED PRN PFSH Active Problems Active Problems: Problem Status Onset Code Complex tear of medial meniscus of right knee S83.231A 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 has. learning impaired, minimal reading skills, is able to skign for self, keep explanations simple. 3th-4th grade level. Surgical History Surgical History Carpal tunnel syndrome, left S/P ECTR: 12/09/2022 History of arthroscopy of right knee History of esophagogastroduodenoscopy (EGD) (~06/21/21) H/O rotator cuff surgery 2006 2011 H/O wrist surgery 2010 History of arthroscopy of knee Tobacco Smoking/Tobacco Use Status: Former Tobacco Use Passive smoking exposure: Yes Second hand exposure: Yes Alcohol Alcohol Intake: current Alcohol intake frequency: holidays/special occasions only Alcohol type: beer and hard liquor Substance Use Substance use: Never Substance use type: does not use Vital Signs and Lab Results Vital Signs Most Recent Vital Signs in EMR: Most Recent Vital Signs Temp Pulse Resp BP Pulse Ox 36.6 C 58 L 16 117/79 100 08/18/23 11:13 08/18/23 11:13 08/18/23 11:13 08/18/23 11:13 08/18/23 11:13 Lab Results Blood Type / Crossmatch: No Data to Display Complete Blood Count: No Data to Display Complete Metabolic Panel: No Data to Display Liver Function Panel: No Data to Display Coagulation Panel: No Data to Display Cardiac Panel: No Data to Display Arterial Blood Gas: No Data to Display Venous Blood Gas: No Data to Display Pancreas Panel: No Data to Display Thyroid Panel: No Data to Display Infectious Disease: No Data to Display Blood Cultures: No Data to Display Toxicology Panel: No Data to Display Imaging and Studies Imaging and Studies Study information below may be from another EMR and interpreted by another provider. Please see original notes in EMR for more complete details. Echocardiogram Summary: 05/2021: LVEF 60%, no hemodynamically sig valve issues. Anesthesia Assessment and Plan Anesthesia History Personal History: No History of Anesthesia Complications Family History: Family History Unknown Exercise Tolerance Exercise Tolerance: Metabolic Equivalents>4 Pertinent Negatives Pertinent Negatives: No Symptoms of GERD and No Major Cardiovascular Symptoms or Complaints Cardiac & Pulmonary Exam Cardiac Exam: Normal S1/S2 Heart Sounds Pulmonary Exam: Clear Bilateral Breath Sounds Implantable Cardiac Device Does patient have a Pacemaker or an ICD?: No Airway Exam Known Difficult Airway: No Mallampati Class: 2 Mouth Opening: Normal (> 3cm) Thyromental Distance: Greater than 3 cm Neck Range of Motion: Full ROM Neck Circumference: Normal Teeth Condition: Edentulous ASA Classification ASA Score: ASA 2 Emergency Case?: No NPO Status NPO Status: NPO Clears >2 hours, Solids >8 hours Anesthesia Plan Resuscitation Status: Full Code Anesthesia Technique: General Anesthesia Airway Planned: LMA Monitors Used: Standard Monitors
--- NOTE | 2023-08-18 12:10 | HPE_ITS ---
Assessment and Plan Assessment and plan (1) Complex tear of medial meniscus of right knee: Status: Acute Assessment and plan: Dionicio is a 43-year-old who has a complex tear of the medial meniscus of the right knee. He continues have pain, instability, and limitations and therefore he is here today for arthroscopy with meniscal intervention. He denies any significant chest pain or shortness of breath. I reviewed the surgery with him and his technical details. Discussed rehabilitation. I reviewed the risks include bleeding, infection, pain, stiffness, continued symptoms, clot, worsening arthritis. Despite these risk, he elects to proceed. History of Present Illness Narrative: Dionicio is a 43-year-old male who has continued pain about his right knee. He has pain, instability, clicking, and catching. MRI confirmed to be a meniscal tear. He is here today for knee arthroscopy with meniscal intervention. No changes to his health. No chest pain or shortness of breath. Review of Systems All systems reviewed & are unremarkable except as noted in HPI and below PFSH All Active Problems Complex tear of medial meniscus of right knee (Acute) S/P Arthroscopy: 08/18/2023 Chondromalacia patellae of right knee (Acute) Left wrist pain (Acute) Knee pain (Chronic) Mental retardation (Chronic) Migraine (Chronic) Elevated glucose (Acute) SOB (shortness of breath) (Acute) occurs at nighttime Eosinophilic esophagitis (Acute) Gastrointestinal food allergy (Acute) mild: barley/onion strong: wheat Costochondral chest pain (Acute) Chronic sore throat (Acute) Elevated cholesterol (Chronic) Medical History Torn rotator cuff Surgical History Carpal tunnel syndrome, left S/P ECTR: 12/09/2022 History of arthroscopy of right knee History of esophagogastroduodenoscopy (EGD) (~06/21/21) H/O rotator cuff surgery 2006 2011 H/O wrist surgery 2010 History of arthroscopy of knee Family History Mother History of surgery on right wrist Father High cholesterol History of total hip replacement Sister No problems noted. Brother No problems noted. 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 [employer] Pets and animals: Yes (FERRETS,adali) Pets and animals: dog(s) Sexually active: No Do you think of yourself as: straight/heterosexual Current gender identity: male What is your relationship status?: refused to answer How often do you talk on the phone with friends or family?: three or more times per week How often do you get together with friends or relatives?: three or more times per week How often do you attend adventist or temple services?: decline to answer Do you belong to any clubs or organized social groups?: no Panel score (0-1 are the most socially isolated patients): 1 What type of physical activity do you participate in: none Frequency: does not exercise Peggy/Pentecostalism: None Special peggy needs: No Seatbelt use: always Helmet use: No Drive intox or ride w/intox 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: No Do you feel safe in your relationship?: Yes Additional Social history: Unable to assess privately Meds Allergies and Home Medications Allergies Allergy/AdvReac Type Severity Reaction Status Date / Time barley Allergy Intermediate Other (See Verified 08/14/23 14:14 Comment) latex Allergy Intermediate skin rash Verified 08/14/23 14:14 wheat Allergy Intermediate Other (See Verified 08/14/23 14:14 Comment) onions Allergy Intermediate Other (See Uncoded 08/14/23 14:14 Comment) Home Medications Medication Instructions Recorded Confirmed Type ipratropium 20 mcg-albuterol 100 1 puff inhalation QID #2 ea 05/15/22 08/18/23 Rx mcg/actuation mist for inhalation (Combivent Respimat) pantoprazole 40 mg tablet,delayed 40 mg PO DAILY #90 tabs 10/17/22 08/18/23 Rx release (Protonix) topiramate 100 mg tablet 100 mg PO BID #90 tab-caps 10/17/22 08/18/23 Rx tramadol 50 mg tablet 50 mg PO Q6H PRN #120 tab-caps 07/01/23 08/18/23 Rx acetaminophen 500 mg tablet 1,000 mg (2 x 500 mg) PO TID #90 08/18/23 Rx tabs ibuprofen 600 mg tablet 600 mg PO TID PRN pain #90 tabs 08/18/23 Rx Exam Resp Auscultation: clear to auscultation bilaterally Cardio Rate: regular rate Rhythm: regular rhythm Results Last Vital Signs Temp 36.6 C 08/18/23 11:13 Pulse 58 L 08/18/23 11:13 Resp 16 08/18/23 11:13 BP 117/79 08/18/23 11:13 Pulse Ox 100 08/18/23 11:13
[2023-08-18] MEDS: ceFAZolin 2 GM/50 ML BAG IVPB (12:35)
[2023-08-18] MEDS: EPINEPHrine 10 MG/10 ML ML (13:11)
[2023-08-18] MEDS: Bupivacaine 0.5% Pres-Free 30 ML VIAL (13:12)
--- NOTE | 2023-08-18 13:53 | W.ANESPOSTOP ---
Postoperative Evaluation Date, Time and Location Date Performed: 08/18/23 Time Performed: 13:50 Patient Location: PACU Vital Signs Most Recent Imported Vital Signs: Most Recent Vital Signs Temp Pulse Resp BP Pulse Ox 36.6 C 55 L 14 111/76 100 08/18/23 13:38 08/18/23 13:45 08/18/23 13:45 08/18/23 13:45 08/18/23 13:45 Pain Score Most Recent Pain Score: Most Recent Pain Score Pain Level 4 08/18/23 13:45 Assessment Mental Status: Awake (Alert & Oriented to Patient Baseline) Airway and Respiratory Function: Patent airway with normal (patient baseline) respiratory exam Cardiovascular Function: Hemodynamically Stable Hydration Status: Adequately Hydrated Nausea & Vomiting: No Nausea or Vomiting Pain: Pain is tolerable per patient Peripheral Nerve Block: Patient did not receive a nerve block
--- NOTE | 2023-08-18 14:08 | ROE_ITS ---
Date of service: 08/18/23 Time of Service: 12:45 Operative Note Operative Note DATE OF PROCEDURE: 08/18/23 PRE-OP DIAGNOSIS: Right Knee Medial Meniscus Tear POST-OP DIAGNOSIS: same PROCEDURE: Arthroscopic Partial Medial Menisectomy - Right Knee SURGEON: Rahat Leonard ANESTHESIA TYPE: General LMA/ETT Refer to Anesthesia Record ESTIMATED BLOOD LOSS: 0 PATHOLOGY: none sent COMPLICATIONS: None Patient was transported to: PACU Patient's condition: stable Indications: I have seen Dionicio in clinic for symptoms of a meniscus tear. This was confirmed based on MRI and exam findings. Nonoperative measures were exhausted but disability and pain persisted. I discussed knee arthroscopy with meniscal intervention with the patient. I reviewed the risks of the procedure to include, but not limited to, bleeding, infection, pain, stiffness, damage to nerves or vessels, recurrence, blood clot. Despite these risks, the patient elected to proceed. Findings: A diagnostic arthroscopy was performed with the following findings: Suprapatellar Pouch: No significant inflammation, No loose bodies Medial Compartment: Complex medial meniscal tear, Intact meniscal root, grade I chondromalacia, No loose bodies Notch: ACL and PCL were intact Lateral Compartment: No meniscal tear, Intact meniscal root, No significant chondromalacia or signs of arthritis, No loose bodies Patellofemoral Compartment: Area of grade II chondromalacia over the medial aspect of the patella, No apparent patellar maltracking Procedure Description: Dionicio was greeted in the preoperative holding area where the correct side was identified and marked. The consent was reviewed with the patient and signed. The history and physical was updated. All questions were answered. He was taken back to the operating room. The patient was placed into the supine position on the operating room table. All bony prominences were well padded. Prophylactic antibiotics in the form of Cefazolin were administered. The right leg was then prepped with Chloraprep and draped in a standard fashion with stockinette and extremity drape. A timeout to confirm correct identity, side and site, procedure, allergies, anesthesia, and medical concerns was performed. The leg was placed into a pneumatic leg pitts, [id number]. A standard lateral portal was made at the lateral border of the patella tendon in line with the inferior pole of the patella, soft spot. The skin and deep tissue was incised sharply and the blunt trochar was inserted atraumatically. A diagnostic arthroscopy was performed and the findings are listed above. The suprapatellar pouch had no significant inflammatory change. The patellofemoral articulation showed an area of grade II chondromalacia over the medial facet of the patella but with good tracking. The lateral gutter had no loose bodies and the medial gutter had no loose bodies. The knee was brought into some valgus stress in extension to open the medial compartment. A medial portal was made, localized by a spinal needle. The portal was created with an #11 blade through skin and capsule under direct visualization avoiding any meniscal injury. A probe was then inserted into the medial compartment. The medial compartment was fully inspected. The chondral surface of the tibia showed grade I chondromalacia and the surface of the femur showed no significant chondromalacia. The medial meniscus had a complex meniscal tear with a horizontal and very small radial component at the posterior horn. After evaluation, the meniscus was debrided down to a stable base using a series of biters and arthroscopic brittni. It was probed afterwards to confirm that the tear had been removed and the meniscus was stable. The notch was then inspected which showed an intact ACL and an intact PCL. The leg was then brought into a figure of 4 position. The lateral compartment was fully inspected with the arthroscope and a probe. The chondral surface of the lateral femur showed no significant chondromalacia. The chondral surface of the lateral tibia showed no significant chondromalacia. The lateral meniscus had no meniscal tear. The arthroscope was brought back into the suprapatellar pouch and the leg was in full extension. The knee was thoroughly irrigated with the arthroscopic fluid on high flow and pressure. Inflow was stopped and excess fluid was removed. The wounds were closed with 4-0 Nylon. They were dressed with Xeroform, 4x4 ga uze, ABD pad, Kerlix and an KIMBERLY wrap. A cryo-cuff was applied. The patient tolerated the procedure well and was returned to the Same Day Surgery area in a stable condition suffering no known complication.
[2023-08-18] MEDS: traMADol 50 MG TAB PO (14:37)
== END 2023-08-18 15:35 | disposition home or self-care (01) ==
LOC: SUR 10:05
PROVIDERS: PCP Nurse Practitioner Family; Visit Provider Student in an Organized Health Care Education/Training Program
PROC: (CPT 29870; principal; 2023-08-18 13:15)
DX: S83.231A Complex tear of medial meniscus, current injury, right knee, initial encounter (principal); G43.909 Migraine, unspecified, not intractable, without status migrainosus; E78.00 Pure hypercholesterolemia, unspecified; M22.41 Chondromalacia patellae, right knee; X58.XXXA Exposure to other specified factors, initial encounter
CPT/HCPCS: 29881; J0665; J0690; J1100; J1885; J2001; J2405; J2704

== ENCOUNTER 2024-02-23 10:57 | Emergency (ER) | payer BC, SELFPAY ==
[2024-02-23 10:59] VITALS: BP 127/81; PULSE 83; RESP 14; TEMP 36.7; O2SAT 96
--- NOTE | 2024-02-23 11:01 | ED.GENADUL_ITS ---
Discharge Plan Disposition Patient Disposition: Home Discharge Details Clinical Impression: SARS-CoV-2 positive Primary Care Provider: Francis Ring ED Provider: Carmine Degroot Home Meds and New Rx's Prescriptions: Continued pantoprazole [Protonix] 40 mg tablet,delayed release (DR/EC) 40 mg PO DAILY Qty: 90 12RF topiramate 100 mg tablet 100 mg PO BID Qty: 90 4RF Combivent Respimat 20-100 mcg/actuation mist 1 puff Inhalation QID Qty: 2 5RF Rx Instructions: dx: Asthma tramadol 50 mg tablet 50 mg PO Q6H PRN Qty: 120 3RF Discharge Instructions Additional Instructions: You are seen in the emergency department for your cough and sensation of a fever. You are found to be COVID-positive. Please follow-up with your primary care provider next week. Please quarantine at home for the next 5 days. Please return to the emergency department if you develop worsening shortness of breath cannot eat or drink or become nauseous and began vomiting. Stand Alone Forms: Work Release HPI General Date/Time Provider Initiated Documentation: 02/23/24 11:01 . HPI Narrative: MDM This is an overall well-appearing normothermic and not tachycardic 43-year-old male with chronic sore throat now superimposed cough and subjective fevers concern for possibility of COVID for which patient will undergo PCR test. No pain or proportion to suggest necrotizing soft tissue infection. No persistent chest pain to suggest ACS so I did not obtain troponin testing. No history of recent falls to suggest pneumothorax. Uvula midline so doubt peritonsillar abscess. Good range of motion in neck so I am not concerned for retropharyngeal abscess. No nuchal rigidity to suggest meningitis and no indication for lumbar puncture. Based on the patient's age and his low Centor score I did not swab for strep. Patient has had no unintentional weight loss nor night sweats this I am not suspicious for malignancy. He is not a smoker to suggest increased risk for head and neck cancer and had ENT assessment several years ago which is reassuring. He does have eosinophilic esophagitis and had a reassuring EGD sev eral years ago. He denies black or bloody stools so I do not feel he requires laboratory assessment. 12:30 PM I met with the patient and explained his COVID infection. He was not hypoxic so no indication for dexamethasone. He lacks risk factors so there is no indication for ritonavir boosted nirmatrelvir. We discussed that he should return to emergency department if he does not urinate at least once every 6-8 hours while awake or if he has any other concerns. I provided him with a work note. We discussed quarantining at home. I advised PCP follow-up as needed next week. Chronic conditions affecting the care of the patient: Sore throat History obtained from an outside historian: N/A External record review: N/A Diagnostic interpretations performed by me: Per my independent interpretation chest x-ray shows: No acute cardiopulmonary process ]Medications: N/A Social determinants of health affecting disposition: N/A Management discussed with: N/A Treatment/interventions considered: Ritonavir boosted nirmatrelvir Response to therapies provided: N/A HPI This is a 43-year-old male with history of chronic sore throat and eosinophilic esophagitis arrived to the emergency department in the setting of cough that is dry and associated with subjective low-grade fevers. He arrives with his mother who is here for difficulty walking. Patient occasionally has had some chest pain but only when coughing. He denies any syncope. He denies routine tobacco, ethanol, and illicits. He reports that he has been evaluated by ENT and general surgery in the past. He has not had any difficulty swallowing. No dysuria no frequency. No abdominal pain. He has received 4 booster shots against COVID. Exam General: Well-appearing in no acute distress speaking in complete sentences. Head: Normocephalic, atraumatic. Eye:[Pupils equal, round reactive to light.] Extraocular eye movements intact. No conjunctival injection. No scleral icterus. Ear, nose, mouth, throat: Mild posterior oropharynx erythema. Uvula midline. Normal voice, handling secretions normally. No tonsillar exudates. Neck: Trachea midline. Good range of motion in neck Cardiovascular: Well-perfused distal extremities. Respiratory: Nonlabored respiration. Clear lungs bilaterally. Gastrointestinal: Nondistended abdomen. Musculoskeletal: No edema. Moving all 4 extremities spontaneously. Skin: Normal for age and race, grossly normal temperature and turgor. No acute rash. Neurologic: Alert and appropriate, no apparent acute deficits. Psychiatric: Mood and manner are appropriate. Grooming and personal hygiene are appropriate. Related Data Home Medications ?Medication ?Instructions ?Recorded ?Confirmed pantoprazole 40 mg tablet,delayed 40 mg PO DAILY #90 tabs 10/17/22 02/23/24 release (Protonix) topiramate 100 mg tablet 100 mg PO BID #90 tab-caps 08/19/23 02/23/24 ipratropium 20 mcg-albuterol 100 1 puff inhalation QID #2 ea 01/28/24 02/23/24 mcg/actuation mist for inhalation (Combivent Respimat) tramadol 50 mg tablet 50 mg PO Q6H PRN #120 tab-caps 02/10/24 02/23/24 Previous Rx's ?Medication ?Instructions ?Recorded pantoprazole 40 mg tablet,delayed 40 mg PO DAILY #90 tabs 10/17/22 release (Protonix) topiramate 100 mg tablet 100 mg PO BID #90 tab-caps 08/19/23 ipratropium 20 mcg-albuterol 100 1 puff inhalation QID #2 ea 01/28/24 mcg/actuation mist for inhalation (Combivent Respimat) tramadol 50 mg tablet 50 mg PO Q6H PRN #120 tab-caps 02/10/24 Allergies Allergy/AdvReac Type Severity Reaction Status Date / Time barley Allergy Intermediate Other (See Verified 02/23/24 11:03 Comment) latex Allergy Intermediate skin rash Verified 02/23/24 11:03 wheat Allergy Intermediate Other (See Verified 02/23/24 11:03 Comment) onions Allergy Intermediate Other (See Uncoded 02/23/24 11:03 Comment) General TERRENCE: 4 Medical Decision Making Quality:SDOH Health Related Social Needs: No Data to Display PFSH All Active Problems (Updated 02/23/24 @ 12:29 by Carmine Degroot MD) SARS-CoV-2 positive (Acute) Complex tear of medial meniscus of right knee (Acute) S/P Arthroscopy: 08/18/2023 Chondromalacia patellae of right knee (Acute) Left wrist pain (Acute) Knee pain (Chronic) Mental retardation (Chronic) Migraine (Chronic) Elevated glucose (Acute) SOB (shortness of breath) (Acute) occurs at nighttime Eosinophilic esophagitis (Acute) Gastrointestinal food allergy (Acute) mild: barley/onion strong: wheat Costochondral chest pain (Acute) Chronic sore throat (Acute) Elevated cholesterol (Chronic) Medical History Torn rotator cuff Surgical History Carpal tunnel syndrome, left S/P ECTR: 12/09/2022 History of arthroscopy of right knee History of esophagogastroduodenoscopy (EGD) (~06/21/21) H/O rotator cuff surgery 2006 2011 H/O wrist surgery 2010 History of arthroscopy of knee Family History Mother History of surgery on right wrist Father High cholesterol History of total hip replacement Sister No problems noted. Brother No problems noted. 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 [employer] Pets and animals: Yes (FERRETS,adali) Pets and animals: dog(s) Sexually active: No Do you think of yourself as: straight/heterosexual Current gender identity: male What is your relationship status?: refused to answer How often do you talk on the phone with friends or family?: three or more times per week How often do you get together with friends or relatives?: three or more times per week How often do you attend latter-day or confucianist services?: decline to answer Do you belong to any clubs or organized social groups?: no Panel score (0-1 are the most socially isolated patients): 1 What type of physical activity do you participate in: none Frequency: does not exercise Peggy/Zoroastrianism: None Special peggy needs: No Seatbelt use: always Helmet use: No Drive intox 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
--- NOTE | 2024-02-23 11:15 | DI.RAD_ITS ---
Exam(s) XR CHEST 2V PA LATERAL EXAM: XR CHEST 2V PA LATERAL CLINICAL HISTORY: Cough TECHNIQUE: 2D digital imaging was performed. Two views. COMPARISON: CR BARIUM SWALLOW W PA LAT CXR from 07/29/2013 FINDINGS: HEART: Normal size. Aorta: Not dilated. PULMONARY VASCULATURE: Normal. MEDIASTINUM: Unremarkable. LUNGS: Clear. PLEURAL SPACE: No pleural effusion or pneumothorax. BONE:Unremarkable for age. Metallic anchors in the right humeral head. SOFT TISSUES: Unremarkable. IMPRESSION: No acute abnormality. DATA REPOSITORY: RADIATION DOSE DELIVERED:
[2024-02-23] MEDS: Acetaminophen 500 MG TAB 1000 MG PO (11:20)
[2024-02-23 12:07] LABS: Influenza A PCR Negative (Negative); Influenza B PCR Negative (Negative); RSV PCR Negative (Negative)
[2024-02-23 12:17] LABS: COVID-19 PCR Positive (Negative); Source Nasopharynx
[2024-02-23 12:21] VITALS: BP 120/74; PULSE 76; O2SAT 98
== END 2024-02-23 13:00 | disposition home or self-care (01) ==
PROVIDERS: Emergency Provider Emergency Medicine; PCP Nurse Practitioner Family
DX: U07.1 COVID-19 (principal); R05.1 Acute cough; R07.0 Pain in throat; R42 Dizziness and giddiness; Z11.52 Encounter for screening for COVID-19
CPT/HCPCS: 87637; 99282; 71046; 99283

== ENCOUNTER 2024-07-18 12:44 | Emergency (ER) | payer BC, SELFPAY ==
[2024-07-18 13:02] VITALS: BP 166/75; PULSE 96; RESP 16; TEMP 37.2; O2SAT 95
[2024-07-18 14:36] LABS: COVID-19 PCR Negative (Negative); Influenza A PCR Positive (Negative); Influenza B PCR Negative (Negative); RSV PCR Negative (Negative)
[2024-07-18 14:38] LABS: Source Nasopharynx
--- NOTE | 2024-07-18 15:14 | W.ED.GENAD ---
Discharge Plan Disposition Patient Disposition: Home Condition: Stable Discharge Details Clinical Impression: Influenza A Primary Care Provider: Francis Ring ED Provider: Jayne Reilly Home Meds and New Rx's Prescriptions: New oseltamivir [Tamiflu] 75 mg capsule 75 mg PO BID 5 Days Qty: 10 0RF No Action sucralfate [Carafate] 1 gram tablet 1 g PO HS Qty: 60 2RF Rx Instructions: can dissolve in water or cut up tablet esomeprazole magnesium [Nexium] 40 mg capsule,delayed release(DR/EC) 40 mg PO BID Qty: 90 4RF topiramate 100 mg tablet 100 mg PO BID Qty: 90 4RF Combivent Respimat 20-100 mcg/actuation mist 1 puff Inhalation QID Qty: 2 5RF Rx Instructions: dx: Asthma tramadol 50 mg tablet 50 mg PO Q6H PRN Qty: 120 3RF Discharge Instructions Instructions: Flu, Adult ED Additional Instructions: You were seen in the emergency department today for evaluation of cough, fever, and sore throat and were found to have influenza A. In our department you do full physical examination performed, and I have prescribed you a medication called Tamiflu. Please start this medication as soon as possible, you will take it twice a day for the next 5 days. This can shorten the duration of flu by a small amount of time, and can reduce the severity of your symptoms. You should also continue to take Tylenol and [id number] medications as needed for cough and pain, and maintain good hydration and nutrition. Please follow-up with your primary care provider in the next few days to discuss this visit and any symptoms that change, worsen, or persist. Thank you for allowing us to be part of your care. HPI General Mode of arrival: ambulatory. Date/Time Provider Initiated Documentation: 07/18/24 13:51. Limitations to Documentation: no limitations. Information obtained by: patient and old records reviewed. HPI Narrative: HPI: This is a 44-year-old male patient with history of GERD, eosinophilic esophagitis, developmental delays who is presenting for evaluation of cough and sore throat. The patient reports that he started to become sick yesterday, noted a cough with some near posttussive emesis. He has a sore throat and feels like when he coughs it hurts his chest. He does not have chest pain in between coughing. States that he felt like he had a fever, has been taking Tylenol and NyQuil as needed for symptomatic management. Did not get his flu shot this year, no reported sick contacts. He states that he was in his normal state of health prior to Thursday, has been able to eat and drink normally. States that he does not drink a lot of water but drinks a lot of soda and energy drinks to stay hydrated. Exam: Gen: Awake and alert, in no apparent distress HEENT: Non-icteric sclera, PERRL, posterior pharynx without erythema, exudate, or asymmetry. Neck: Supple Lungs: No apparent respiratory distress, normal respiratory effort. Lung sounds clear and equal bilaterally without wheezes, rhonchi, rales CV: Appears well perfused, heart with regular rate and rhythm, strong distal pulses Abdomen: Non-distended MSK: Moves 4 extremities without apparent limitation in ROM Skin: Visualized skin without rashes, cyanosis. Neuro: Normal Gait, no obvious focal deficits or facial asymmetry. Speaks in full, clear sentences. Psych: Appropriate for situation. MDM: This is a 44-year-old male patient presenting for evaluation of cough, sore throat, and subjective fever. The differential includes but is not limited to viral URI, bronchitis, pneumonia, considered reactive airway disease exacerbation, though the patient has no wheezing or history of same. No evidence of fluid overload to suggest pulmonary edema or pleural effusion. The patient is hemodynamically appropriate without fever or tachycardia to suggest bacteremia or sepsis. We will obtain a viral swab ED Course: Viral swab positive for influenza A, this finding was shared with the patient and on reevaluation his vital signs remain reassuring. Given the brief duration of symptoms I do not see an indication to proceed with imaging such as chest x-ray given his lack of hypoxia or focal lung findings. I did discuss Tamiflu with him and he is desiring of initiation of this medication, which was sent to his pharmacy. At this time, the patient has had a full medical evaluation and is safe for discharge to home. They are hemodynamically stable, ambulatory, and tolerating PO. They are understanding of the follow-up plan and return precautions. They left our facility without incident. Jayne Reilly MD Related Data Home Medications ?Medication ?Instructions ?Recorded ?Confirmed topiramate 100 mg tablet 100 mg PO BID #90 tab-caps 08/19/23 07/18/24 ipratropium 20 mcg-albuterol 100 1 puff inhalation QID #2 ea 01/28/24 07/18/24 mcg/actuation mist for inhalation (Combivent Respimat) tramadol 50 mg tablet 50 mg PO Q6H PRN #120 tab-caps 02/10/24 07/18/24 sucralfate 1 gram tablet (Carafate) 1 g PO HS #60 tabs 03/17/24 07/18/24 esomeprazole magnesium 40 mg 40 mg PO BID #90 caps 03/18/24 03/18/24 capsule,delayed release (Nexium) oseltamivir 75 mg capsule (Tamiflu) 75 mg PO BID 5 days #10 caps 07/18/24 Previous Rx's ?Medication ?Instructions ?Recorded topiramate 100 mg tablet 100 mg PO BID #90 tab-caps 08/19/23 ipratropium 20 mcg-albuterol 100 1 puff inhalation QID #2 ea 01/28/24 mcg/actuation mist for inhalation (Combivent Respimat) tramadol 50 mg tablet 50 mg PO Q6H PRN #120 tab-caps 02/10/24 sucralfate 1 gram tablet (Carafate) 1 g PO HS #60 tabs 03/17/24 esomeprazole magnesium 40 mg 40 mg PO BID #90 caps 03/18/24 capsule,delayed release (Nexium) oseltamivir 75 mg capsule (Tamiflu) 75 mg PO BID 5 days #10 caps 07/18/24 Allergies Allergy/AdvReac Type Severity Reaction Status Date / Time barley Allergy Intermediate Other (See Verified 07/18/24 13:06 Comment) latex Allergy Intermediate skin rash Verified 07/18/24 13:06 wheat Allergy Intermediate Other (See Verified 07/18/24 13:06 Comment) onions Allergy Intermediate Other (See Uncoded 07/18/24 13:06 Comment) General Stated Complaint: RespSymp TERRENCE: 4 Course Vital Signs Vital signs: Vital Signs Temperature 37.2 C 07/18/24 13:02 Pulse 96 H 07/18/24 13:02 Respiratory Rate 16 07/18/24 13:02 Blood Pressure 166/75 H 07/18/24 13:02 Pulse Oximetry 95 07/18/24 13:02 Temperature 37.2 C 07/18/24 13:02 Temperature Source Oral 07/18/24 13:02 Pulse 96 H 07/18/24 13:02 Respiratory Rate 16 07/18/24 13:02 Blood Pressure 166/75 H 07/18/24 13:02 Blood Pressure Position Sitting 07/18/24 13:02 Pulse Oximetry 95 07/18/24 13:02 Oxygen Delivery Method Room Air 07/18/24 13:02 Oxygen Flow Rate 0 07/18/24 13:02 Lab/Test Results Lab/Test Results: Laboratory Tests Range/Units 07/18/24 13:09 COVID-19 Source Nasopharynx SARS-CoV-2 (PCR) (Negative) Negative Influenza Type A (PCR) (Negative) Positive A Influenza Type B (PCR) (Negative) Negative RSV (PCR) (Negative) Negative Medical Decision Making Quality:SDOH Health Related Social Needs: No Data to Display PFSH All Active Problems (Updated 07/18/24 @ 15:14 by Jayne Reilly MD) Influenza A (Acute) Chronic GERD (Acute) Complex tear of medial meniscus of right knee (Acute) S/P Arthroscopy: 08/18/2023 Chondromalacia patellae of right knee (Acute) Left wrist pain (Acute) Knee pain (Chronic) Mental retardation (Chronic) Migraine (Chronic) Elevated glucose (Acute) SOB (shortness of breath) (Acute) occurs at nighttime Eosinophilic esophagitis (Acute) Gastrointestinal food allergy (Acute) mild: barley/onion strong: wheat Costochondral chest pain (Acute) Chronic sore throat (Acute) Elevated cholesterol (Chronic) Medical History Torn rotator cuff Surgical History Carpal tunnel syndrome, left S/P ECTR: 12/09/2022 History of arthroscopy of right knee History of esophagogastroduodenoscopy (EGD) (~06/21/21) H/O rotator cuff surgery 2006 2011 H/O wrist surgery 2010 History of arthroscopy of knee Family History Mother History of surgery on right wrist Father High cholesterol History of total hip replacement Sister No problems noted. Brother No problems noted. 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 [employer] Pets and animals: Yes (FERRETS,adali) Pets and animals: dog(s) Sexually active: No Do you think of yourself as: straight/heterosexual Current gender identity: male What is your relationship status?: refused to answer How often do you talk on the phone with friends or family?: three or more times per week How often do you get together with friends or relatives?: three or more times per week How often do you attend mandaeism or zoroastrian services?: decline to answer Do you belong to any clubs or organized social groups?: no Panel score (0-1 are the most socially isolated patients): 1 What type of physical activity do you participate in: none Frequency: does not exercise Peggy/Quaker: None Special peggy needs: No Seatbelt use: always Helmet use: No Drive intox or ride w/intox straight truck driver: No Do you feel safe in your relationship?: Yes PAWSS Have you Been Recently Intoxicated or Drunk Within the Last 30 days?: No Have you Ever Experienced Previous Episodes of Alcohol Withdrawal?: No Have you ever Experienced Withdrawal Seizures?: No Have you ever Experienced Delirium Tremens(DT)s?: No Have you ever undergone Alcohol Rehabilitation Treatment (i.e, inpt ot outpatient treatment programs)?: No Have you ever Experienced Blackouts?: No Have you ever Combined Alcohol with other Downers within the last 90 days?: No Have you ever Combined Alcohol with any other Substance of Abuse during the last 90 days?: No Positive Blood Alcohol level on Presentation? [PCS.BAL]: No Evidence of Increased Autonomic Activity (i.e. HR>120, tremor, sweating, agitation, nausea)?: No Result: 0
== END 2024-07-18 15:27 | disposition home or self-care (01) ==
PROVIDERS: Emergency Provider Emergency Medicine; PCP Nurse Practitioner Family
DX: J10.1 Influenza due to other identified influenza virus with other respiratory manifestations (principal); Z87.891 Personal history of nicotine dependence
CPT/HCPCS: 87637; 99283

== ENCOUNTER 2024-10-28 13:33 | Outpatient (CLI) | payer BC, SELFPAY ==
[2024-10-28 14:04] LABS: Hemoglobin A1C 5.3 % (<5.7)
[2024-10-28 14:40] LABS: Calculated LDL 113 mg/dL (<100); Cholesterol 193 mg/dL (<200); HDL Cholesterol 60 mg/dL (>or=40); Triglyceride 104 mg/dL (<150)
[2024-10-28 23:05] LABS: PSA, Screening 4.3 ng/mL (<=2.5)
== END 2024-10-28 13:34 | disposition home or self-care (01) ==
LOC: LBO 13:35
PROVIDERS: PCP Nurse Practitioner Family; Visit Provider Nurse Practitioner Family
DX: Z13.1 Encounter for screening for diabetes mellitus (principal); Z12.5 Encounter for screening for malignant neoplasm of prostate; Z13.220 Encounter for screening for lipoid disorders
CPT/HCPCS: 36415; 80061; 84153; 83036